=== PATIENT | female | born 1935 | race Caucasian/White ===

== ENCOUNTER 2021-02-25 08:11 | Outpatient (CLI) | payer OTHER, SELFPAY ==
--- NOTE | ~2021-02-25 | DEXA_ITS ---
Bone Density Report Name: Jackie Bernard Age: 85 Sex: Female Ethnicity: White Date of : 1935 Indication: osteopenia; height loss; prior fracture; Referring Provider: CRYSTAL KEITA Study: Bone densitometry was performed. Exam Date: February 25, 2021 Accession number: [id number] Bone Density: Region BMD T-score Z-score Classification AP Spine (L1, L2) 0.916 -0.6 2.1 Normal Femoral Neck (Right) 0.615 -2.1 0.4 Osteopenia Total Hip (Right) 0.775 -1.4 0.9 Osteopenia World Health Organization criteria for BMD impression classify patients as: Normal (T-score at or above -1.0), Osteopenia (T-score between -1.0 and -2.5), or Osteoporosis (T-score at or below -2.5). 10-year Fracture Risk: FRAX not reported because: Prior hip or vertebral fracture Previous Exams: Region Exam Age BMD T-score BMD Change BMD Change Date g/cm2 vs Baseline vs Previous AP Spine(L1, L2) 02/25/2021 85 0.916 -0.6 0.009(1.0%) 0.009(1.0%) 02/09/2019 83 0.907 -0.7 Total Hip(Right) 02/25/2021 85 0.775 -1.4 0.055(7.6%)* 0.055(7.6%)* 02/09/2019 83 0.720 -1.8 *Denotes significance at 95% confidence level, LSC for AP Spine = 0.022 g/cm2, LSC for Total Hip = 0.027 g/cm2 Clinical Information Provided by Patient: Have had a previous hip or vertebral fracture Has had a low trauma fracture Has used the following medications: Vitamin D, Calcium Patient maximum height was 67 Menopause Age: 51 No regular weight bearing exercise Does not regularly consume dairy products Drinks caffeinated beverages Onset of menses at age 15 Number of children 3 Impression: The patient has low bone mass, based on the Right Femoral Neck T-score. The patient has risk factors, including: previous fracture. No significant bone loss was observed. Discussion: INCREASED RISK OF FRACTURE DUE TO HISTORY OF FRACTURE. The patient's previous fracture puts the patient at high risk of a future fracture. In untreated patients, the risk of osteoporotic fracture increases approximately two-fold for each 1.0 SD decrease in T-score. Low bone density is not the only risk factor for fracture; also consider factors such as patient's age, frailty or poor health, risk of falling, risk of injury, previous osteoporotic fracture, family history of osteoporosis, cigarette smoking, low body weight, etc. Not everyone with a low trauma fracture has osteoporosis; osteomalacia and other metabolic bone disorders should also be considered. Patients who have osteoporosis should be evaluated for
== END 2021-02-25 08:12 | disposition home or self-care (01) ==
PROVIDERS: PCP Internal Medicine; Visit Provider Internal Medicine
DX: M81.0 Age-related osteoporosis without current pathological fracture (principal); M85.851 Other specified disorders of bone density and structure, right thigh
CPT/HCPCS: 77080

== ENCOUNTER → 2021-10-28 00:39 | Outpatient (CLI) | payer OTHER, SELFPAY ==
[2021-10-29 10:57] LABS: SARS-CoV-2 RNA PCR Positive
== END ==
PROVIDERS: PCP Internal Medicine; Visit Provider Internal Medicine
DX: U07.1 COVID-19 (principal)
CPT/HCPCS: C9803; U0003; U0005

== ENCOUNTER 2022-01-29 08:45 | Outpatient (RCR) | payer OTHER, SELFPAY ==
--- NOTE | 2021-12-17 10:40 | PTOPEVAL ---
PHYSICAL THERAPY INITIAL EVALUATION Thank you for referring Jackie Garcia to [facility].? The patient is scheduled to be seen for therapy? 2x/week for 4 weeks. Please review, sign, date and return this plan of care JACKIE. I agree with and certify that the following plan of care is medically necessary. Referring Physician Date Attending Provider: Gabriel Romero MD *PT Outpatient Evaluation Start: 12/17/21 Evaluation Information Diagnosis Repeated falls Additional Evaluation Detail Pt presents today with her [place]. She is wheeled by the therapist into the treatment area. Subjective Information Pt states she fell down , her Query Text:As Reported By Patient/ states she has fallen Family at least 4 times in the last 6 months. Pt states she does not know why she falls but her reports she looses her balance and is not able to catch herself. Pt is unable to get up by herself or with her husbands support after she falls, they call EMS to help get her up. Pt uses a front WW walker at home and a rollator in the community. Per , her falls are usually when she is trying to get on/off the toilet or the couch. Pt reports she does not get up and walk around very often, really only to the bathroom and bath which is about 20 feet. Pain Assessment Pain Score 0: Self Report Upper Extremity Range of Motion General Upper Extremity Range of Motion WFL/Left,WFL/Right Lower Extremity Range of Motion General Lower Extremity Range of Motion WFL/Left,WFL/Right Lower Extremity Muscle Strength Testing Gross Lower Extremity Strength B knees 4/5 B ankles 3+/5 B hips 4-/5 Upper Extremity Muscle Strength Testing General Upper Extremity Strength Reason Not Measured WFL/Left,WFL/Right Gross Upper Extremity Strength Comments Grossly 4-/5 in B UE Balance Assessment Tinetti Balance Assessment Tinetti Composite Score (Balance + Gait) 07/09 Tinetti Fall Risk High Time Up Go (TUG) Timed Up and Go Test (TUG) (Seconds) 50 Assistive Devices Walker, Rollator 5 Time Sit to Stand Time in Seconds 39 5 Time Sit to Stand Comments With use of UEs, did not Query Text:Normative Data: If Greater achieve upright posture
--- NOTE | 2022-01-13 09:53 | PTOPEVAL ---
PHYSICAL THERAPY PROGRESS REPORT. Thank you for referring Jackie Garcia to [facility].? The patient is scheduled to continue therapy? 1x/week for 4 weeks. Please review, sign, date and return this plan of care JACKIE. I agree with and certify that the following plan of care is medically necessary. Referring Physician Date Attending Provider: Gabriel Romero MD Evaluation Information Diagnosis Repeated falls Subjective Information Pt and her say therapy Query Text:As Reported By Patient/ is helping a little bit. They Family both state her ability to transfer in her home is the same. Pts report one fall in the last month. Pt states she does her exercises but does not walk around her home much. Pain Assessment Pain Score 0: Self Report Lower Extremity Range of Motion General Lower Extremity Range of Motion WFL/Left,WFL/Right Lower Extremity Muscle Strength Testing General Lower Extremity Strength Gross Lower Extremity Strength B knees 4/5 B ankles 4-/5 B hips 4/5 Balance Assessment Tinetti Balance Assessment Tinetti Composite Score (Balance + Gait) 07/09 Tinetti Fall Risk High Time Up Go (TUG) Timed Up and Go Test (TUG) (Seconds) 46 Assistive Devices Walker, Rollator Comments Initially: 50s with rollator 01/13/22: 46s with rollator 5 Time Sit to Stand Time in Seconds 39 5 Time Sit to Stand Comments Initially: 39s With use of UEs Query Text:Normative Data: If Greater , did not achieve upright Than 15 Seconds, 74% Increase Risk for posture each time, no Recurrent Falls eccentric control during sitting 01/13/22: 33s With use of UEs, did not achieve upright posture each time, no eccentric control during sitting Gait Assessment Ambulation Assistive Devices Walker, Rollator Ambulation Distance 100' Ambulation Destination In Gym Ambulation Direction Forward Ambulation Ability Contact Guard Cues Needed For Ambulation Verbal Additional Ambulation Comments decreased step length initially responds to take big steps with a slightly increased step length. This does not carry over for more than 10 steps. Freezing and staggering pattern du
--- NOTE | 2022-02-04 08:28 | PCPTNOTE ---
Patient called & cancelled scheduled appointment this date due to having a sore foot.
--- NOTE | 2022-02-10 14:59 | PCPTNOTE ---
Patient called & cancelled scheduled appointment this date due to her foot being swollen.
--- NOTE | 2022-02-26 09:53 | PCPTNOTE ---
Attending Provider: Gabriel Romero MD Patient:Jackie Garcia Date of :1935 Patients called and canceled her remaining appointments due to her having persistent foot pain and her doctor recommending that she stop therapy. She would like to be discharged at this time, and he states they will get a new order when she is feeling better. Patient?s initial visit was on 12/17/2021 and she had a total of 9 visits. The goals have been partially met. Thank you for referring this patient to [facility]. Please review, sign, date and return this discharge summary JACKIE. I have been updated about the patient's current status and I agree with discharge from the above service at this time. Referring Physician Date
== END 2022-02-26 16:20 | disposition home or self-care (01) ==
LOC: ANHPT 08:45
PROVIDERS: PCP Internal Medicine; Visit Provider Internal Medicine
DX: R29.6 Repeated falls (principal)
CPT/HCPCS: 97110; 97112; 97116; 97161; 97530

== ENCOUNTER 2022-02-03 12:09 | Outpatient (CLI) | payer OTHER, SELFPAY ==
--- NOTE | 2022-02-03 13:19 | ECHO_ITS ---
Patient Info Name: Jackie Garcia Age: 86 years : 1935 Gender: Female Ht: 67 in Wt: 250 lbs BSA: 2.37 m2 HR: 57 bpm BP: 183 / 102 mmHg Technical Quality: Fair Exam Date: 02/03/2022 1:40 PM Exam Location: [facility] Patient Status: Outpatient Admit Date: 02/03/2022 Staff Ordering Physician: Gabriel Romero MD Tin Plater: Charlotte Recinos RDCS Attending Provider: Gabriel Romero MD Exam Type: CA echo doppler color flow Study Info Indications - NONNON RHEUMATIC AORTIC VALVE DISORDER Complete two-dimensional, color flow and Doppler transthoracic echocardiogram is performed. Summary 1. Complete two-dimensional, color flow and Doppler transthoracic echocardiogram is performed. 2. Left ventricular chamber dimension is normal. 3. Left ventricular systolic function is normal, estimated at 65-70%. 4. There is mildly increased left ventricular wall thickness. 5. The left ventricular diastolic function is grade I diastolic dysfunction. 6. E/e' 18 is elevated. 7. Left atrial chamber dimension is mildly enlarged. 8. There is mild aortic valve sclerosis. 9. The mitral valve has moderately calcified annulus. 10. There is mild tricuspid valve regurgitation. 11. No pulmonary hypertension, estimated pulmonary arterial systolic pressure is 29 mmHg. Left Ventricle E/e' 18 is elevated. Left ventricular chamber dimension is normal. Left ventricular systolic function is normal, estimated at 65-70%. There is mildly increased left ventricular wall thickness. The left ventricular diastolic function is grade I diastolic dysfunction. Right Ventricle Right ventricular chamber dimension is normal. Right ventricular systolic function is normal. Left Atria Left atrial chamber dimension is mildly enlarged. Right Atria Right atrial chamber dimension is normal. Aortic Valve The aortic valve is trileaflet. There is mild aortic valve sclerosis. There is no aortic valve stenosis. There is no aortic valve regurgitation. Pulmonic Valve There is no pulmonic regurgitation. Mitral Valve The mitral valve has moderately calcified annulus. There is no mitral valve stenosis. There is no mitral valve regurgitation. Tricuspid Valve There is mild tricuspid valve regurgitation. No pulmonary hypertension, estimated pulmonary arterial systolic pressure is 29 mmHg. Pericardium/Pleural There is no pericardial effusion. Inferior Vena Cava Normal inferior vena cava with >50% collapse upon inspiration consistent with normal right atrial pressure, 5 mmHg. Aorta The aortic root size at the sinus of Valsalva is normal. Left Ventricular Outflow Tract Name Value Normal LVOT 2D LVOT Diameter 2.0 cm LVOT Doppler LVOT Peak Gradient 5 mmHg LVOT Mean Gradient 3 mmHg LVOT VTI 28 cm LVOT VTI/AV VTI Ratio 0.8 LVOT Stroke Volume 85 ml LVOT CO 15.2 l/min LVOT CI 6.4 l/min/m2 Pulmonic Valve ------
== END 2022-02-03 12:10 | disposition home or self-care (01) ==
LOC: ANHCARD 12:11
PROVIDERS: PCP Internal Medicine; Visit Provider Internal Medicine
DX: I35.8 Other nonrheumatic aortic valve disorders (principal); I36.1 Nonrheumatic tricuspid (valve) insufficiency
CPT/HCPCS: 93306

== ENCOUNTER → 2022-02-13 09:09 | Outpatient (CLI) | payer OTHER, SELFPAY ==
--- NOTE | ~2022-02-13 | XR_ITS ---
EXAMINATION: [id number] INDICATION: Right foot pain TECHNIQUE: Three views of the right foot are obtained. COMPARISON: None available FINDINGS: The bones are osteopenic which limits the sensitivity for fracture however none is seen. Ramirez llux valgus is noted. 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 M oderate to osteoarthritis is noted in multiple other interphalangeal joints as well is at the tarsome tatarsal joints. There is dorsal soft tissue swelling of the foot overlying the metatarsals. Calcifie d atherosclerosis is noted. IMPRESSION: 1. Dorsal soft tissue swelling of the foot without acute osseous abnormality identified, sensitivity limited by osteopenia Reviewed, dictated and finalized at location B. IMPRESSION: 1. Dorsal soft tissue swelling of the foot without acute osseous abnormality id entified, sensitivity limited by osteopenia
== END ==
PROVIDERS: PCP Internal Medicine; Visit Provider Internal Medicine
DX: M79.671 Pain in right foot (principal); M79.89 Other specified soft tissue disorders; M85.88 Other specified disorders of bone density and structure, other site
CPT/HCPCS: 73630

== ENCOUNTER 2022-04-02 12:11 | Outpatient (CLI) | payer OTHER, SELFPAY ==
--- NOTE | 2022-04-04 11:39 | WPDNEUROLOGY ---
Neurology EEG Report General Information Date of Study: 04/02/22 TEST eeg DIAGNOSIS amnesia CONDITION OF RECORDING awake drowsy and sleep EEG NUMBER [id number] CLINICAL HISTORY patient is not sure why she is having this test EEG DESCRIPTION basic resting occipital frequency consists of low to medium voltage 8 to 9 hertz per 2nd alpha admixed with low-voltage 15 to 18 hertz per 2nd beta and intermittent 6 to 7 hertz per 2nd theta activity. Photic stimulation produced normal drive. Hyperventilation not done. Non paroxysmal. Nonfocal. Nonlateralizing. IMPRESSION No significant abnormalities noted
== END 2022-04-02 12:12 | disposition home or self-care (01) ==
LOC: ANHNEURO 12:13
PROVIDERS: PCP Internal Medicine; Visit Provider Psychiatry & Neurology Neurology
DX: R41.3 Other amnesia (principal)
CPT/HCPCS: 95816

== ENCOUNTER 2023-01-24 09:31 | Inpatient (IN) | payer OTHER, SELFPAY ==
[2023-01-24] VITALS (43 sets, daily range): BP systolic 108–147; BP diastolic 68–108; PULSE 54–71; RESP 15–28; TEMP 36.2–36.7; O2SAT 85–100
--- NOTE | ~2023-01-24 | XR_ITS ---
Portable chest x-ray Comparison: 01/25/2023 Clinical History: CHF Findings: Central congestive change and mild central pulmonary edema pattern is present. There is a linear scarring or atelectasis at the left midlung. Cardiomediastinal silhouette is stable. Bones an d soft tissues are unremarkable. Impression: Central congestive change and mild central pulmonary edema. Linear scarring or atelectasis at the left midlung. Reviewed, dictated and finalized at location . Impression: Central congestive change and mild central pulmonary edema. Linear scarring or atelectasis at the left midlung.
--- NOTE | ~2023-01-24 | XR_ITS ---
Portable chest x-ray Comparison: 01/26/2023 Clinical History: Shortness of breath Findings: There is central congestive change and mild pulmonary edema. Possible minimal pleural effu sions. Stable prominence of the right hilar region. Cardiomediastinal silhouette is stable. Bones an d soft tissues are unremarkable. Impression: Probable central congestive change and mild pulmonary edema with possible minimal pleural effusions. Stable prominence the right hilar region. Reviewed, dictated and finalized at location . Impression: Probable central congestive change and mild pulmonary edema with possible minim al pleural effusions. Stable prominence the right hilar region.
--- NOTE | ~2023-01-24 | XR_ITS ---
Portable chest x-ray Comparison: 01/28/2023 Clinical History: CODE BLUE Findings: There is mild central congestive change and possible minimal bibasilar pulmonary edema. No pleural effusion or pneumothorax. Cardiomediastinal silhouette is stable. Bones and soft tissues ar e unremarkable. Impression: Central congestive change and probable minimal bibasilar pulmonary edema. Reviewed, dictated and finalized at location . Impression: Central congestive change and probable minimal bibasilar pulmonary edema.
--- NOTE | ~2023-01-24 | CT_ITS ---
EXAMINATION: CTA chest PE protocol DATE: 01/24/2023 12:17 INDICATION: Hypoxia and shortness of breath TECHNIQUE: Computed tomography angiography (CTA) of the chest was performed with 100 mL Omnipaque-350 intravenous contrast timed to evaluate the pulmonary arteries. Coronal maximum intensity projection 3D-reconstructions were created by the technologist. The dose-length product (DLP) was 1085.06 mGy-cm . Automated exposure control and iterative reconstruction technique were employed. COMPARISON: None. FINDINGS: The pulmonary arteries are well-opacified. Respiratory motion artifact moderately limits th e examination. No central pulmonary embolism is identified. There are minimal airspace opacities of t he lung bases. Some areas of air-trapping are seen in the upper lobes which may reflect small airways disease or small vessel disease. No pleural effusion or pneumothorax. Cardiomegaly is noted. There a re no pathologically enlarged thoracic lymph nodes. Punctate calcifications in an otherwise normal sp kasi likely represent healed granulomatous disease. There is moderate thoracic spondylosis. IMPRESSION: 1. No pulmonary embolus identified, sensitivity limited by respiratory motion artifact. 2. Minimal airspace opacities of the lung bases, consistent with atelectasis versus mild pulmonary ed aida versus pneumonia. 3. Cardiomegaly. Reviewed, dictated and finalized at location A. IMPRESSION: 1. No pulmonary embolus identified, sensitivity limited by respiratory motion a rtifact. 2. Minimal airspace opacities of the lung bases, consistent with atelectasis ve rsus mild pulmonary edema versus pneumonia. 3. Cardiomegaly.
--- NOTE | ~2023-01-24 | XR_ITS ---
EXAMINATION: XR chest 1V portable INDICATION: Congestive heart failure TECHNIQUE: Portable AP chest at 0527 hours COMPARISON: 01/24/2023 FINDINGS: Cardiomegaly is noted. There is a mild diffuse interstitial pattern without significant thang nge. No pleural effusion or pneumothorax. IMPRESSION: 1. Cardiomegaly with unchanged mild pulmonary edema. Reviewed, dictated and finalized at location A.
--- NOTE | ~2023-01-24 | XR_ITS ---
EXAMINATION: XR chest 1V portable INDICATION: Shortness of breath TECHNIQUE: Portable AP chest at 1038 hours COMPARISON: None available FINDINGS: There are airspace opacities of the lung bases and left midlung zone. No pleural effusion o r pneumothorax. The cardiomediastinal silhouette is normal. IMPRESSION: 1. Airspace opacities of the lung bases and left midlung zone, consistent with atelectasis versus pne umonia. Reviewed, dictated and finalized at location A. IMPRESSION: 1. Airspace opacities of the lung bases and left midlung zone, consistent with atelectasis versus pneumonia.
--- NOTE | 2023-01-24 10:01 | ECG_ITS ---
Measurements Intervals [place]ell Rate: 65 P: IL: 0 QRS: -22 QRSD: 166 T: 7 QT: 474 QTc: 496 Interpretive Statements UNCERTAIN REGULAR RHYTHM BORDERLINE LEFT AXIS DEVIATION [QRS AXIS < -20] INTRAVENTRICULAR CONDUCTION DELAY [130+ ms QRS DURATION] Possible old inferior NC Poor R-wave progression NO PREVIOUS ECG AVAILABLE FOR COMPARISON Electronically Signed On 01-24-2023 22:16:05 CDT by Anahy Christina M.D.
--- NOTE | 2023-01-24 10:03 | ED.SOB ---
HPI - SOB/Dyspnea General Chief Complaint: Shortness of Breath/Dyspnea <Nerissa Ferrera PA-C - Last Filed: 01/24/23 14:02> Stated Complaint: SOB <Nerissa Ferrera PA-C - Last Filed: 01/24/23 14:02> Time Seen by Provider: 01/24/23 09:57 <Nerissa Ferrera PA-C - Last Filed: 01/24/23 14:02> History of Present Illness HPI Narrative: 87-year-old female history of hypertension, dementia, here via EMS for evaluation of SOB x 1 day. History obtained largely from given patient's baseline mental status. He tells me that she started feeling short of breath yesterday. States that she felt this way throughout the entirety of the day and is not particularly worse with exertion or better at rest. She was complaining of chest pain 3 days ago as well but patient denies this currently. She reports some mild swelling around her ankles which she states is chronic. Does not elaborate on the quality of the pain. She had no cough, fevers, congestion. She has no smoking history. Patient was found to have saturations in the high 80s on room air and she was placed on nasal cannula with improvement of her saturations, she has never had an oxygen requirement in the past. <Nerissa Ferrera PA-C - Last Filed: 01/24/23 14:02> Related Data Allergies/Adverse Reactions: Allergies Allergy/AdvReac Type Severity Reaction Status Date / Time No Known Allergies Allergy Verified 07/28/22 09:01 <AMBREEN Mazariegos Last Filed: 01/24/23 14:02> Review of Systems Review of Systems: Gen.: Denies fevers or chills Eyes: Denies eye pain or visual change ENT: Denies congestion Respiratory: Reports shortness of breath CV: Denies chest pain or palpitations GI: Denies abdominal pain nausea, emesis or diarrhea : denies burning, urgency, frequency or hematuria Musculoskeletal: Denies back pain or muscle pain Neuro: Denies numbness, tingling, weakness or focal weakness Skin: Denies rash Except as documented, all other systems reviewed and negative <CARISSA Mazariegos-C - Last Filed: 01/24/23 14:02> [facility] Past Medical History Medical History: Medical History (Updated 01/24/23 @ 14:02 by Nerissa Ferrera PA-C) Aortic heart murmur Diastolic heart failure, NYHA class 1 Dyslipidemia Hypertension Parkinson disease <Nerissa Ferrera PA-C - Last Filed: 01/24/23 14:02> Surgical History Surgical History: Surgical History (Updated 01/24/23 @ 13:57 by Crystal Pappas NP) Hx of cataract extraction S/P ORIF (open reduction internal fixation) fracture hip <Nerissa Ferrera PA-C - Last Filed: 01/24/23 14:02> Family History Family History: Family History Father Family history of malignant neoplasm Mother Family history of malignant neoplasm Patient's mother is Mother Hypertension Father Patient's father is Family history of cardiovascular disease <Nerissa Ferrera PA-C - Last Filed: 01/24/23 14:02> Social History Social History: Social History Social History: 3 children . lives with . 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 alert and oriented x 2 which is her baseline Head: Normocephalic and atraumatic. EYES: PERRLA/EOMI, conjunctivae clear NOSE: No nasal drainage EARS: External ear normal in appearance THROAT: Oropharynx is clear. Mucous membranes are moist. NECK: Supple. No adenopathy, no masses. RESPIRATORY: There are
[2023-01-24] MEDS: IPRATROPIUM BR 0.02% INH SOLN 0.5 MG/2.5 ML VIAL INHALATION ×2 (10:17→21:36)
[2023-01-24] MEDS: LEVALBUTEROL NEB 1.25 MG/3 ML INHALATION (10:18)
[2023-01-24 10:32] LABS: Alveolar/Arterial O2 Gradient 79.7 mmHg; Base Excess ABG 5.9 mEq/l (+/-2.0); Fractional Inspired Oxygen 28 %; HCO3 ABG 30.1 mEq/l (22.0-26.0); Oxygen Content ABG 17.3 %vol (16.0-22.0); Oxygen Saturation ABG 95.1 % (95.0-100.0); Oxyhemoglobin 91.5 % THb (90.0-100.0); PCO2 ABG 41.8 mmHg (35.0-45.0); PO2 ABG 70.6 mmHg (80.0-100.0); PO2 FiO2 Ratio Arterial Blood 2.52 %; Total Hemoglobin 13.4 g/dL (12.0-18.0); pH ABG 7.475 (7.350-7.450)
[2023-01-24 10:34] LABS: Device NASAL CANNULA; Modified Allen's Test Pass; Site Drawn LEFT RADIAL
[2023-01-24 11:11] LABS: Basophils Percent Auto 0.3 % (0.2-1.2); Eosinophils Percent Auto 0.1 % (0-4.4); Hematocrit 40.2 % (37.0-47.0); Hemoglobin 13.4 g/dL (12.0-15.0); Immature Granulocyte Absolute 0.04 K/mm3 (0.00-0.031); Immature Granulocyte Percent A 0.4 % (0-0.5); Lymphocytes Absolute Auto 1.56 K/mm3 (0.9-3.2); Lymphocytes Percent Auto 16.1 % (18.3-44.2); Mean Corpuscular HGB Conc 33.3 g/dl (32-36); Mean Corpuscular Hemoglobin 31.5 pg (26-34); Mean Corpuscular Volume 94.4 fl (80-100); Mean Platelet Volume 11.1 fl (7.4-10.4); Monocytes Absolute Auto 0.7 K/mm3 (0.1-0.6); Monocytes Percent Auto 7.4 % (2.6-8.5); Neutrophils Absolute Auto 7.3 K/mm3 (1.3-6.7); Neutrophils Percent Auto 75.7 % (45.5-73.1); Platelet Count Result 201 k/mm3 (150-375); Red Blood Count 4.26 M/mm3 (4.2-5.4); Red Cell Distribution Width 14.6 % (11.5-14.5); White Blood Count 9.7 K/mm3 (4.5-10.0)
[2023-01-24 11:24] LABS: INR 1.1; Prothrombin Time 13.8 Seconds (11.1-14.7)
[2023-01-24 11:25] LABS: Partial Thromboplastin Time 25.5 SECONDS (22.3-36.8)
[2023-01-24 11:26] LABS: Lactic Acid Reflex 2.4 mmol/L (0.7-2.0)
[2023-01-24 11:28] LABS: D Dimer 2.09 ug/mL (<0.48)
[2023-01-24 11:46] LABS: Influenza A QL RT-PCR Negative (Negative); Influenza B QL RT-PCR Negative (Negative); SARS-CoV-2 RNA PCR Negative
[2023-01-24 11:51] LABS: Alanine Aminotransferase 81 U/L (6-35); Albumin Level 4.1 g/dL (3.5-5.1); Alkaline Phosphatase 58 U/L (38-126); Anion Gap 9 mmol/L (8-16); Aspartate Amino Transferase 223 U/L (14-36); Bilirubin,Total 0.7 mg/dL (0.2-1.3); Blood Urea Nitrogen 30 mg/dL (7-17); Calcium 8.8 mg/dL (8.4-10.2); Carbon Dioxide 30 mmol/L (22-30); Chloride 100 mmol/L (98-107); Estimated Glomerular Filt Rate 59; Glucose 156 mg/dL (65-110); Magnesium 1.9 mg/dL (1.6-2.3); NT Pro B Type Natriuretic Pept 1930 pg/mL (19.9-100); Sodium 139 mmol/L (137-145)
[2023-01-24] MEDS: ASPIRIN 81 MG CHEWABLE TABLET 324 MG PO (12:28)
--- NOTE | 2023-01-24 12:58 | PC.NURSE ---
RN to bedside to start heparin drip. Attempted to place second IV for heparin infusion unsuccessfully. Pt has been poked four times and has poor vasculature. Antibiotic due to be finished in less than 30 min. Pt's at bedside requesting to wait the 30 minutes so that patient does not need to be poked again. Will start heparin as soon as abx finishes.
[2023-01-24] MEDS: HEPARIN SODIUM 5,000 UNITS/ML VIAL 4000 UNITS IV PUSH ×2 (13:41→20:42)
[2023-01-24] MEDS: HEPARIN SOD/D5W 100 UNITS/ML 25,000 UNITS/250 ML BAG 8 UNITS IV CONT (13:42)
[2023-01-24] MEDS: SODIUM CHLORIDE 0.9% IV 1,000 ML 999 ML IV CONT (13:44)
--- NOTE | 2023-01-24 13:53 | PM.IMHP ---
H&P: HPI History of Present Illness Date/Time: 01/24/23 13:53 Chief Complaint: Shortness of breath Narrative: This is an 87-year-old female patient who has a history of dementia and hypertension. The patient lives at home with her . The patient came to the emergency room to be evaluated for shortness of breath for the last day. The information was obtained by her daughter who is at the bedside and stated that she was the power spindle maker for the patient. The patient was feeling short of breath yesterday but then she refused to come to the emergency room. Patient also complained of chest pain about 3 days ago but would not go to the emergency room. The patient has some mild swelling around her lower extremities at the family stated is chronic. Her O2 saturations were in the high 80s on room air. She does not wear oxygen at home. The patient was placed on oxygen at 2 L per nasal cannula here in the emergency room. Her D-dimer was found to be 2.09. Chest CTA was read as the following 1. No pulmonary embolus identified, sensitivity limited by respiratory motion artifact. 2. Minimal airspace opacities of the lung bases, consistent with atelectasis versus mild pulmonary edema versus pneumonia. 3. Cardiomegaly. Chest x-ray was read as air space opacities of the lower lung base and left mid lung zones consistent with atelectasis versus pneumonia. The patient was started on a heparin drip after her troponin was found to be 13.800 and then came down to 6.880. BNP was found be 1930. The patient has been started on heparin drip. The patient was found to be negative for influenza A/B and COVID. The patient is being admitted to inpatient status on the date of service of 01/24/2023. Review of Systems Review of Systems: All systems reviewed & are unremarkable except as noted in HPI and below Constitutional: Constitutional: Reports as per HPI and Reports no additional constitutional complaints Eyes: Eyes: Reports as per HPI and Reports no additional eye complaints ENT: Reports system reviewed and no additional complaints, except as documented and Reports Normal hearing present Cardiovascular: Cardiovascular: Reports no additional cardiovascular complaints Respiratory: Respiratory: Reports no additional respiratory complaints and Reports no additional respiratory complaints Gastrointestinal: Gastrointestinal: Reports as per HPI and Reports no additional gastrointestinal complaints Musculoskeletal: Musculoskeletal: Reports no additional musculoskeletal complaints Integumentary/Breasts: Skin/Breast: Reports system reviewed and no additional complaints, except as docu and Reports as per HPI Neurologic: Reports system reviewed and no additional complaints, except as documented, Reports as per HPI and Reports Normal hearing present Psychiatric: Psychiatric: Reports no additional psychiatric complaints and Reports as per HPI Endocrine: Endocrine: Reports no additional endocrine complaints Hematologic/Lymphatic: Hematologic/Lymphatic: Reports no additional hematologic/lymphatic complaints Allergic/Immunologic: Allergic/Immunologic: Reports no additional allergic/immunologic complaints [facility] Past Medical History Medical History (Updated 01/24/23 @ 16:34 by Crystal Pappas NP) Aortic heart murmur Diastolic heart failure, NYHA class 1 Dyslipidemia Hypertension Osteoporosis Parkinson disease Surgical History Surgical History Hx of cataract extraction S/P ORIF (open reduction internal fixation) fracture hip Family History Family History Father Family history of malignant neoplasm Mother Family history of malignant neoplasm Patient's mother is Mother Hypertension Father Patient's father is Family history of cardiovascular disease Social History Social History (
[2023-01-24 14:07] LABS: Reflex Lactic Acid Yes or No Add Lactic
[2023-01-24 14:37] LABS: Appearance Urine Slightly Cloudy (Clear); Bilirubin Urine Negative (Negative); Blood Urine Trace-intact (Negative); Color Urine Yellow (Yellow); Glucose Urine UA Negative (Negative); Ketones Urine Negative (Negative); Leukocyte Esterase Ur Negative LEU/UL (Negative); Nitrate Urine Negative (Negative); Protein Urine 1+ mg/dL (Negative); Urobilinogen Urine 0.2 mg/dL (<2.0); pH Urine 5.5 (5.0-9.0)
[2023-01-24] MEDS: FUROSEMIDE INJ 40 MG/4 ML VIAL IV PUSH ×2 (14:37→16:39)
[2023-01-24 14:43] LABS: Add Urine Microscopic? YES
[2023-01-24 14:44] LABS: RBC Urine 0-2 /hpf (0-2)
[2023-01-24] MEDS: KCL 20 MEQ/SW 100 ML 100 ML 50 MEQ IVPB (14:44)
[2023-01-24 14:45] LABS: Squamous Epithelial Cell Urine Moderate /hpf (Few)
[2023-01-24 14:46] LABS: Bacteria Urine Trace /hpf
--- NOTE | 2023-01-24 15:49 | PC.NURSE ---
This patient, Jackie Garcia, was admitted to IMU Room 206-01. Patient/family oriented to hospital policies and general routines including ID bracelet, bed and alarms, visiting hours, pain management, procedures, bathroom and other care routines, personal items, smoking policy, room service/diet, and visiting hours. Information on how to activate the Rapid Response Team has been discussed. Patient/Family are encouraged to report perceived risks to care and to ask questions if they do not understand what they are told or what they should do.
--- NOTE | 2023-01-24 16:02 | PC.NURSE ---
Admission questions and medication reconciliation was completed with family as patient answers most orientation questions correctly but is overall a poor historian.
[2023-01-24 16:35] LABS: Lactic Acid 2.4 mmol/L (0.7-2.0)
[2023-01-24] MEDS: NITROGLYCERIN OINTMENT 1 INCH DOSE TRANSDERM (16:39)
--- NOTE | 2023-01-24 17:49 | PM.CNCAR ---
Assessment and Plan Assessment and plan (1) Non-ST elevation PA (NSTEMI): Code(s): I21.4 - Non-ST elevation (NSTEMI) myocardial infarction Status: Acute Assessment and Plan: Patient with stuttering chest pain over the last 3 days, EKG changes suggestive of ischemia but not STEMI. Since this is associated with CHF I suspect she has very significant coronary artery disease. I explained to the patient and her family that this is a serious situation and that her prognosis is not good. Thhis may be a life-threatening situation. I recommend medical therapy as well as cardiac catheterization to see her coronary anatomy and if PCI is feasible. Reviewed cardiac catheterization including risks and benefits. ( Reviewed possible risks and complications with patient including breathing problems, bleeding problems, blood vessel problems, unanticipated surgery, allergic reactions, kidney problems, CVA, PA, and among others. Discussed possibility of stenting and also the possibility that stents will not be feasible and bypass surgery may be needed, or possibly just medical tx. ). The family understands the risks. Patient desires to proceed. Hopefully we can do this electively on Thursday but if the patient deteriorates this may need to be emergency procedure. --continue aspirin, heparin --continue carvedilol --check EKG in the morning --nitro paste and sublingual nitro --echocardiogram --cardiac catheterization and possible PCI on Thursday unless there is significant deterioration that cannot be controlled medically. (2) Acute combined systolic and diastolic congestive heart failure: Code(s): I50.41 - Acute combined systolic (congestive) and diastolic (congestive) heart failure Status: Acute Assessment and Plan: Patient presents with acute heart failure, probably due to diastolic and now a degree of systolic dysfunction which is a poor prognostic sign 1 associated with acute PA. --echo on Thursday --continue diuretics, losartan, carvedilol (3) Dyslipidemia: Code(s): E78.5 - Hyperlipidemia, unspecified Status: Acute Assessment and Plan: History of dyslipidemia in the face of a non-STEMI. --start atorvastatin 40 mg daily. (4) Hypertension: Qualifiers: Hypertension type: primary hypertension Qualified Code(s): I10 - Essential (primary) hypertension Code(s): I10 - Essential (primary) hypertension Status: Acute Assessment and Plan: History of hypertension, reasonably controlled a at the present time. --continue BP meds. (5) Hypokalemia: Code(s): E87.6 - Hypokalemia Status: Acute Assessment and Plan: Will supplement potassium --check potassium in the morning (6) Dementia: Code(s): F03.90 - Unspecified dementia, unspecified severity, without behavioral disturbance, psychotic disturbance, mood disturbance, and anxiety Status: Acute Assessment and Plan: Explained to the patient and the family that her confusion may be worse during this hospital stay and we would do our best to keep her comfortable and oriented. History of Present Illness History of Present Illness Consult date/time: 01/24/23 17:49 Reason For Visit: NSTEMI Narrative: Jackie Wiggins is an 87-year-old female whom I was asked to see at the request of CARISSA Ferrera for my advice and opinion regarding her non-STEMI in consultation. History of hypertension and hyperlipidemia. The patient has no history of heart disease. She started having some substernal chest discomfort to 3 days ago. This has been intermittent, with some discomfort yesterday in this morning. In addition she had shortness of breath and heavy breathing starting the last 1 or 2 days. The family wanted to call 911 and bring her to the emergency room yesterday but the patient refused. This morning she looked worse and she was brought to the emergency room. Here she has had no complaints
[2023-01-24] MEDS: carvediloL 12.5 MG TABLET BY MOUTH (18:05)
[2023-01-24 20:21] LABS: Partial Thromboplastin Time 46.9 SECONDS (22.3-36.8)
[2023-01-24] MEDS: NITROGLYCERIN OINTMENT 1 INCH DOSE TOPICAL (20:49)
[2023-01-24] MEDS: LEVALBUTEROL NEB 1.25 MG/3 ML 0.63 MG INHALATION (21:36)
--- NOTE | 2023-01-24 21:36 | ECG_ITS ---
Measurements Intervals [place] Rate: 58 P: UT: 0 QRS: -16 QRSD: 89 T: -16 QT: 432 QTc: 427 Interpretive Statements ACCLERATED JUNCTIONAL BRADYCARDIA POSSIBLE ANTERIOR MYOCARDIAL INFARCTION PROBABLE OLD iNFERIOR MYOCARDIAL INFARCTION [40+ ms Q WAVE AND/OR ST/T ABNORMALITY IN II/aVF], OF COMPARED TO ECG 01/24/2023 09:36:56 NO SIGNIFICANT CHANGES Electronically Signed On 01-25-2023 9:21:06 CDT by Anahy Christina M.D.
[2023-01-24 23:08] LABS: Need Manual Microscopic Reviewed; Non Pathogenic Casts 0-2
[2023-01-25] VITALS (27 sets, daily range): BP systolic 89–138; BP diastolic 38–80; PULSE 48–72; RESP 18–24; TEMP 36.1–36.7; O2SAT 92–99
--- NOTE | 2023-01-25 | ECHO_ITS ---
Patient Info Name: Jackie Garcia Age: 87 years : 1935 Gender: Female Ht: 66 in Wt: 229 lbs BSA: 2.24 m2 HR: 63 bpm BP: 107 / 68 mmHg Heart Rhythm: Bradycardia Technical Quality: Fair Exam Date: 01/25/2023 10:53 AM Exam Location: [facility] Pulmonary Patient Status: Inpatient Admit Date: 01/24/2023 Staff Ordering Physician: Crystal Pappas NP [employer] Operator: Juani Christianson RDCS Attending Provider: Selena Loomis DO Referring Physician: Elyse VALENCIA; Exam Type: CA echo dop color flow w con Study Info Indications I51.7 - Cardiomegaly Complete two-dimensional, color flow and Doppler transthoracic echocardiogram is performed with contrast to opacify the left ventricle and to improve the deliniation of the left ventricle endocardial borders. Contrast/Agitated Saline Contrast/Ag. Saline: Definity Amount: 3.00 ml Administered By: Juani Christianson RDCS Existing IV Access: Yes IV Access Condition: patent with no signs of infiltration Summary 1. Small left ventricular cavity size with at least moderate concentric hypertrophy, and a degree of asymmetric septal hypertrophy of 1.6 cm. Hyperdynamic left ventricular systolic function, ejection fraction greater than 70%. There may be mild posterior septal basal hypokinesis. Grade 2 diastolic dysfunction is present. 2. Moderate right ventricular enlargement with severe hypokinesis, with apical sparing such as that seen with Gamble will sign. 3. Left atrial chamber dimension is moderately enlarged. 4. Right atrial chamber dimension is mildly enlarged. 5. There is moderate aortic valve stenosis with a peak velocity of 224.00 cm/s, mean gradient of 9 mmHg, and aortic valve area of 1.97 cm2. 6. There is mild mitral valve regurgitation. 7. Junctional bradycardia. 8. Technically difficult study, IV definity echo contrast used. Left Ventricle Left ventricular chamber dimension is decreased. Left ventricular systolic function is normal, estimated at >70%. There is moderately increased left ventricular wall thickness. Left ventricular septal wall motion is normal. The left ventricular diastolic function is grade II diastolic dysfunction. Right Ventricle Right ventricular chamber dimension is moderately enlarged. Right ventricular systolic function is reduced. Left Atria Left atrial chamber dimension is moderately enlarged. Right Atria Right atrial chamber dimension is mildly enlarged. Aortic Valve The aortic valve is trileaflet. There is no aortic valve sclerosis. There is moderate aortic valve stenosis with a peak velocity of 224.00 cm/s, mean gradient of 9 mmHg, and aortic valve area of 1.97 cm2. There is no aortic valve regurgitation. There is moderate aortic valve calcification. Pulmonic Valve The pulmonic valve is normal. There is no pulmonic valve stenosis. There is no pulmonic regurgitation. Mitral Valve The mitral valve has normal leaflets. There is no mitral valve stenosis. There is mild mitral valve regurgitation. There is mild mitral valve calcification. The mitral valve annulus is moderately calcified. Tricuspid Valve The tricuspid valve leaflets are normal. There is no significant tricuspid valve stenosis. There is trace tricuspid valve regurgitation. No pulmonary hypertension, estimated pulmonary arterial systolic pressure is 22 mmHg. Pericardium/Pleural The pericardium appears normal. There is no pericardial effusion.
[2023-01-25] MEDS: NITROGLYCERIN OINTMENT 1 INCH DOSE TOPICAL ×3 (01:05→14:15)
[2023-01-25] MEDS: LEVALBUTEROL NEB 1.25 MG/3 ML 0.63 MG INHALATION ×4 (02:46→20:53)
[2023-01-25] MEDS: IPRATROPIUM BR 0.02% INH SOLN 0.5 MG/2.5 ML VIAL INHALATION ×4 (02:47→20:53)
[2023-01-25 03:32] LABS: Partial Thromboplastin Time > 200.0 SECONDS (22.3-36.8)
[2023-01-25 05:32] LABS: Basophils Absolute Auto 0.1 K/mm3 (0.0-0.1); Basophils Percent Auto 0.5 % (0.2-1.2); Eosinophils Percent Auto 0.1 % (0-4.4); Hematocrit 37.2 % (37.0-47.0); Hemoglobin 12.2 g/dL (12.0-15.0); Immature Granulocyte Absolute 0.07 K/mm3 (0.00-0.031); Immature Granulocyte Percent A 0.8 % (0-0.5); Lymphocytes Absolute Auto 2.46 K/mm3 (0.9-3.2); Lymphocytes Percent Auto 26.6 % (18.3-44.2); Mean Corpuscular HGB Conc 32.8 g/dl (32-36); Mean Corpuscular Hemoglobin 31.2 pg (26-34); Mean Corpuscular Volume 95.1 fl (80-100); Mean Platelet Volume 11.1 fl (7.4-10.4); Monocytes Absolute Auto 0.9 K/mm3 (0.1-0.6); Monocytes Percent Auto 9.8 % (2.6-8.5); Neutrophils Absolute Auto 5.7 K/mm3 (1.3-6.7); Neutrophils Percent Auto 62.2 % (45.5-73.1); Platelet Count Result 181 k/mm3 (150-375); Red Blood Count 3.91 M/mm3 (4.2-5.4); Red Cell Distribution Width 14.9 % (11.5-14.5); White Blood Count 9.2 K/mm3 (4.5-10.0)
[2023-01-25 05:39] LABS: Alanine Aminotransferase 94 U/L (6-35); Albumin Level 3.8 g/dL (3.5-5.1); Alkaline Phosphatase 56 U/L (38-126); Anion Gap 5 mmol/L (8-16); Aspartate Amino Transferase 175 U/L (14-36); Bilirubin,Total 0.6 mg/dL (0.2-1.3); Blood Urea Nitrogen 36 mg/dL (7-17); Calcium 8.1 mg/dL (8.4-10.2); Carbon Dioxide 32 mmol/L (22-30); Chloride 99 mmol/L (98-107); Estimated Glomerular Filt Rate 53; Glucose 148 mg/dL (65-110); Magnesium 1.7 mg/dL (1.6-2.3); Potassium 2.9 mmol/L (3.4-5.0); Sodium 136 mmol/L (137-145)
--- NOTE | 2023-01-25 08:00 | ECG_ITS ---
Measurements Intervals [place] Rate: 49 P: -75 NV: 140 QRS: -14 QRSD: 89 T: 128 QT: 461 QTc: 420 Interpretive Statements JUNCTIONAL BRADYCARDIA LOW QRS VOLTAGE IN PRECORDIAL LEADS [QRS DEFLECTION < 1.0 mV IN CHEST LEADS] INFERIOR [place], PROBABLY OLD POOR R-WAVE PROGRESSION NONSPECIFIC ST-T CHANGES WHICH ARE MORE PRONOUNCED COMPARED TO THE PRIOR TRACING COMPARED TO ECG 01/24/2023 23:07:09 NO SIGNIFICANT CHANGES Electronically Signed On 01-25-2023 9:25:14 CDT by Anahy Christina M.D.
[2023-01-25] MEDS: LOSARTAN POTASSIUM 100 MG TABLET PO (09:18)
[2023-01-25] MEDS: FUROSEMIDE INJ 40 MG/4 ML VIAL IV PUSH (09:19)
[2023-01-25] MEDS: DONEPEZIL HCL 5 MG TABLET BY MOUTH (09:19)
[2023-01-25] MEDS: carvediloL 12.5 MG TABLET BY MOUTH (09:19)
[2023-01-25] MEDS: POTASSIUM CHLORIDE INJ 40 MEQ in SODIUM CHLORIDE 0.9% IV 500 ML 130 MEQ IVPB (09:20)
--- NOTE | 2023-01-25 09:30 | PM.IMPN ---
Progress Note: A&P Assessment and Plan (1) Non-ST elevation CA (NSTEMI): Code(s): I21.4 - Non-ST elevation (NSTEMI) myocardial infarction Status: Acute Assessment and Plan: Presented with shortness of breath, and chest pain for 3 days Trops elevated at 13.800, 6.880, 12.900, 11.100 EKG (01/24/23) shows regular rhythm, no ST elevation EKG (01/25/23) Bradycardia, CA anterior (recent), CA inferior (age indeterminate), no significant changes Chest xray shows opacities, of the lung bases, and left mid lung zone consistent with PNA vs atelectasis CTA does not indicate any PE, confirms opacities of the lung bases PNA vs Atelectasis vs pulmonary edema Cardiology consulted Supplemental oxygen Continue cavedilol, aspirin, nitro Continue heparin gtt for now Echo ordered Possible cath in the am NPO after midnight (2) Pneumonia: Code(s): J18.9 - Pneumonia, unspecified organism Status: Acute Assessment and Plan: CTA and chest xray indicate PNA vs Atelectasis Continue azithromycin Rocephin Blood cultures pending sputum cultures pending Supplemental oxygen as indicated Continue with nebulizer treatments (3) Diastolic heart failure, NYHA class 1: Code(s): I50.30 - Unspecified diastolic (congestive) heart failure Status: Acute Assessment and Plan: Echo from 02/03/2022 shows EF of 65-70% with grade 1 diastolic dysfunction Repeat echo ordered and pending CTA does indicated mild pulmonary edema appears to be an acute on chronic diastolic heart failure with exacerbation Continue lasix, losartan, and supplemental potassium Trend urine output Daily weights adjust therapy as indicated (4) Dyslipidemia: Code(s): E78.5 - Hyperlipidemia, unspecified Status: Acute Assessment and Plan: Low-fat diet Lipid panel in the am Start patient on statin as indicated (5) Hypertension: Qualifiers: Hypertension type: primary hypertension Qualified Code(s): I10 - Essential (primary) hypertension Code(s): I10 - Essential (primary) hypertension Status: Acute Assessment and Plan: Current BP is 138/78 Continue with Coreg, Lasix, and losartan Hold hydrochlorothiazide with lasix Continue to trend BP adjust therapy as indicated (6) Dementia: Code(s): F03.90 - Unspecified dementia, unspecified severity, without behavioral disturbance, psychotic disturbance, mood disturbance, and anxiety Status: Acute Assessment and Plan: Continue aricept Reorient often Encourage good wake sleep cycle trend mood and mentation (7) Hypokalemia: Code(s): E87.6 - Hypokalemia Status: Acute Assessment and Plan: K is 2.9 replace with 40 PO and IV recheck 1 hour post infusion replace as indicated Time Spent With Patient Time: 51 minutes Time with patient: Greater than 35 minutes Subjective Date/time seen: 01/25/23929 Interval history: 01/25/23929 Patient is lying in bed. Patient's son and [id number] are present in the room. She is alert and oriented x 2. She did not know the year or situation. She denies any chest pain, nausea, vomiting, diarrhea, and constipation. She did state that she is weaker than normal, and she is wanting a cheeseburger. Her daughter is present and has been updated. 01/24/23? 13:53 This is an 87-year-old female patient who has a history of dementia and hypertension.? The patient lives at home with her .? The patient came to the emergency room to be evaluated for shortness of breath for the last day.? The information was obtained by her daughter who is at the bedside and stated that she was the power compliance attorney for the patient.? The patient was feeling short of breath yesterday but then she refused to come to the emergency erick
--- NOTE | 2023-01-25 09:30 | P.PNIM_ITS ---
Progress Note: A&P Assessment and Plan (1) Non-ST elevation OR (NSTEMI): Code(s): I21.4 - Non-ST elevation (NSTEMI) myocardial infarction Status: Acute Assessment and Plan: * Presented with shortness of breath, and chest pain for 3 days * Trops elevated at 13.800, 6.880, 12.900, 11.100 * EKG (01/24/23) shows regular rhythm, no ST elevation * EKG (01/25/23) Bradycardia, OR anterior (recent), OR inferior (age ind eterminate), no significant changes * Chest xray shows opacities, of the lung bases, and left mid lung zone consistent with PNA vs atelectasis * CTA does not indicate any PE, confirms opacities of the lung bases PNA vs Atelectasis vs pulmonary edema * Cardiology consulted * Supplemental oxygen * Continue cavedilol, aspirin, nitro * Continue heparin gtt for now * Echo ordered * Possible cath in the am * NPO after midnight (2) Pneumonia: Code(s): J18.9 - Pneumonia, unspecified organism Status: Acute Assessment and Plan: * CTA and chest xray indicate PNA vs Atelectasis * Continue azithromycin Rocephin * Blood cultures pending * sputum cultures pending * Supplemental oxygen as indicated * Continue with nebulizer treatments (3) Diastolic heart failure, NYHA class 1: Code(s): I50.30 - Unspecified diastolic (congestive) heart failure Status: Acute Assessment and Plan: * Echo from 02/03/2022 shows EF of 65-70% with grade 1 diastolic dysfunction * Repeat echo ordered and pending * CTA does indicated mild pulmonary edema * appears to be an acute on chronic diastolic heart failure with exacerbation * Continue lasix, losartan, and supplemental potassium * Trend urine output * Daily weights * adjust therapy as indicated (4) Dyslipidemia: Code(s): E78.5 - Hyperlipidemia, unspecified Status: Acute Assessment and Plan: * Low-fat diet * Lipid panel in the am * Start patient on statin as indicated (5) Hypertension: Qualifiers: Hypertension type: primary hypertension Qualified Code(s): I10 - Essential (primary) hypertension Code(s): I10 - Essential (primary) hypertension Status: Acute Assessment and Plan: * Current BP is 138/78 * Continue with Coreg, Lasix, and losartan * Hold hydrochlorothiazide with lasix * Continue to trend BP * adjust therapy as indicated (6) Dementia: Code(s): F03.90 - Unspecified dementia, unspecified severity, without behavioral disturbance, psychotic disturbance, mood disturbance, and anxiety Status: Acute Assessment and Plan: * Continue aricept * Reorient often * Encourage good wake sleep cycle * trend mood and mentation (7) Hypokalemia: Code(s): E87.6 - Hypokalemia Status: Acute Assessment and Plan: * K is 2.9 * replace with 40 PO and IV * recheck 1 hour post infusion * replace as indicated Time Spent With Patient Time: 51 minutes Time with patient: Greater than 35 minutes Subjective Date/time seen: 01/25/23929 Interval history: 01/25/23929 Patient is lying in bed. Patient's son and [id number]-qui are present in the room. She is alert and oriented x 2. She did not know the year or situati
[2023-01-25 10:59] LABS: Partial Thromboplastin Time 58.5 SECONDS (22.3-36.8)
[2023-01-25] MEDS: ATORVASTATIN 40 MG TABLET PO (11:11)
[2023-01-25] MEDS: POTASSIUM CHLORIDE 20 MEQ TABLET 40 MEQ PO (11:11)
[2023-01-25] MEDS: HEPARIN SODIUM 5,000 UNITS/ML VIAL 3000 UNITS IV PUSH (11:16)
--- NOTE | 2023-01-25 11:22 | PM.PNCARD ---
Progress Note: A&P Assessment and Plan (1) Non-ST elevation [place] (NSTEMI): Code(s): I21.4 - Non-ST elevation (NSTEMI) myocardial infarction Status: Acute Assessment and Plan: NSTEMI, associated with CHF and lactic acidosis which are poor prognostic signs, particular in octogenarians. This is a life-threatening problem. --continue aspirin, heparin, nitrates --discontinue carvedilol due to junctional rhythm --stat echocardiogram today to assess LV fxn --cardiac catheterization and possible PCI on Thursday unless there is significant deterioration and CP that cannot be controlled medically. Reviewed situation with interventionalist on-call as I am concerned that the lactic acidosis represents poor perfusion. Since she has had no further chest pain and appears otherwise clinically stable, he recommended delaying catheterization until tomorrow as there was no need to perform emergency catheterization today. Hold off on dobutamine to reduce cardiac workload. (2) Acute combined systolic and diastolic congestive heart failure: Code(s): I50.41 - Acute combined systolic (congestive) and diastolic (congestive) heart failure Status: Acute Assessment and Plan: Patient presents with acute heart failure, probably due to diastolic and likely now a degree of systolic dysfunction which is a poor prognostic sign when associated with acute NH. --echo today --continue diuretics, losartan. Hold a.m. Lasix for cath. (3) Junctional bradycardia: Code(s): R00.1 - Bradycardia, unspecified Status: Acute Assessment and Plan: Junctional bradycardia, with worsening bradycardia, contributing to poor cardiac output. --DC carvedilol (4) Lactic acidosis: Code(s): E87.20 - Acidosis, unspecified Status: Acute Assessment and Plan: Likely due to poor cardiac output. Sepsis less likely, but cultures being done. (5) Dyslipidemia: Code(s): E78.5 - Hyperlipidemia, unspecified Status: Acute Assessment and Plan: History of dyslipidemia in the face of a non-STEMI. --started atorvastatin 40 mg daily. (6) Hypertension: Qualifiers: Hypertension type: primary hypertension Qualified Code(s): I10 - Essential (primary) hypertension Code(s): I10 - Essential (primary) hypertension Status: Acute Assessment and Plan: History of hypertension, reasonably controlled a at the present time. --continue BP meds. (7) Hypokalemia: Code(s): E87.6 - Hypokalemia Status: Acute Assessment and Plan: Will supplement potassium, getting IV Kcl. --check potassium later today and daily (8) Dementia: Code(s): F03.90 - Unspecified dementia, unspecified severity, without behavioral disturbance, psychotic disturbance, mood disturbance, and anxiety Status: Acute Assessment and Plan: Explained to the patient and the family that her confusion may be worse during this hospital stay and we would do our best to keep her comfortable and oriented. Subjective Date/time seen: Follow-up for non-STEMI and CHF. Stat are inked chest pain for 3 days prior to admission, peak troponin about 13. Found to be in CHF and junctional rhythm. Treated with aspirin, heparin, nitrates, carvedilol discontinued. 01/25/23 11:22 uneventful night, did well with no chest pain. Patient denies shortness of breath an RNs have not noted any problems. Pt asking when her procedure will be done tmr. Remains on 2 L O2. Elevated lactic acid of 2.4 however noted. Chest x-ray read as showing no change in mild CHF. Review of Systems Review of Systems: Denies any chest pain or shortness of breath, no bleeding, asking for breakfast and is hungry. No edema. Exam Narrative: Sweet elderly female, took out her hair curlers earlier is this morning, looks perky, good color, no distress sitting up in bed. Const: General: cooperative, healthy appearing and comfortable;
[2023-01-25] MEDS: PERFLUTREN LIPID MICROSPHERES 1.5 ML VIAL DILUTED TO 10 ML TOTAL VOLUME IV PUSH (11:54)
--- NOTE | 2023-01-25 11:55 | IVDEFINITY ---
Prior to administration of IV Definity the patient was educated on the risks and benefits of the imaging enhancing agent including potential adverse side effects. The patient verbalized understanding. Allergies were verified. No exclusion criteria were identified and at least one of the following inclusion criteria were met: 1) physician request, 2) patient technically difficult to image (per the [place] [employer] guidelines of two or more segments not discernable within the apical view), or 3) questionable left ventricular function. ?
[2023-01-25] MEDS: HEPARIN SOD/D5W 100 UNITS/ML 25,000 UNITS/250 ML BAG 10 UNITS IV CONT (13:40)
[2023-01-25] MEDS: ONDANSETRON INJ 4 MG/2 ML VIAL IV PUSH (15:28)
--- NOTE | 2023-01-25 15:51 | ECG_ITS ---
Measurements Intervals [place] Rate: 55 P: VT: 0 QRS: -16 QRSD: 99 T: 0 QT: 217 QTc: 209 Interpretive Statements JUNCTIONAL RHYTHM/rADYCARDIA LOW QRS VOLTAGE IN PRECORDIAL LEADS [QRS DEFLECTION < 1.0 mV IN CHEST LEADS] POOR R-WAVE PROGRESSION INFERIOR MYOCARDIAL INFARCTION [40+ ms Q WAVE AND/OR ST/T ABNORMALITY IN II/aVF], PROBABLY OLD WARNING: DATA QUALITY MAY AFFECT INTERPRETATION COMPARED TO ECG 01/25/2023 07:42:53 NO SIGNIFICANT CHANGES Electronically Signed On 01-26-2023 10:33:11 CDT by Tres Cazares M.D.
[2023-01-25] MEDS: SODIUM CHLORIDE 0.9% IV 200 ML IV CONT (16:00)
[2023-01-25 17:56] LABS: Partial Thromboplastin Time 95.3 SECONDS (22.3-36.8)
[2023-01-25] MEDS: SODIUM CHLORIDE 0.9% IV 250 ML IV CONT (18:30)
[2023-01-25] MEDS: FAMOTIDINE 20 MG/2 ML VIAL IV PUSH (20:23)
[2023-01-26] VITALS (28 sets, daily range): BP systolic 88–137; BP diastolic 46–99; PULSE 30–92; RESP 14–24; TEMP 36.2–36.6; O2SAT 93–100
[2023-01-26 02:45] LABS: Partial Thromboplastin Time 84.8 SECONDS (22.3-36.8)
[2023-01-26] MEDS: MORPHINE SULFATE (*CRX) 2 MG/ML INJ 1 MG IV PUSH (03:39)
[2023-01-26] MEDS: LEVALBUTEROL NEB 1.25 MG/3 ML 0.63 MG INHALATION ×2 (07:47→21:00)
[2023-01-26] MEDS: IPRATROPIUM BR 0.02% INH SOLN 0.5 MG/2.5 ML VIAL INHALATION ×2 (07:47→21:00)
--- NOTE | 2023-01-26 08:28 | PM.PNCARD ---
Progress Note: A&P Assessment and Plan (1) Non-ST elevation [place] (NSTEMI): Code(s): I21.4 - Non-ST elevation (NSTEMI) myocardial infarction Status: Acute Plan This is an elderly lady apparently without previous history of coronary disease who presents to the hospital over the weekend with some shortness of breath apparently had chest pain several days prior to presentation and troponin significantly elevated indicating evidence of an infarction probably several days prior to admission. Plans for angiography have been set in place by my partner. Discussed this with the patient and the family at the bedside this morning. Will proceed with catheterization this morning and further recommendations to be forthcoming Tres Cazares MD [facility] Subjective Date/time seen: Date of service: 01/26/23 08:28 Interval history: Follow-up visit in this 87-year-old woman with: Admission to the hospital over the weekend with shortness of breath clinical and lab evidence appears to indicate evidence of a recent NH with chest pain several days prior to presentation. The patient appears to be relatively comfortable this morning is lying supine in bed family at the bedside asking about plans for coronary angiography. Nature of the procedure was discussed in detail with them. Patient is understanding of this appears to be somewhat limited. Reported history of some degree of dementia Exam Const: General: comfortable and no acute distress Other: Very obese elderly lady no distress HENMT: Mouth: Yes moist mucous membranes Eyes: Sclera: sclerae normal Pupils: Equal, round and reactive pupils present Neck: Neck: supple and no JVD Resp: Effort & Inspection: normal respiratory effort Auscultation: clear to auscultation bilaterally Cardio: Rate: bradycardic Rhythm: regular rhythm Other: No audible murmur GI: GI Palp: Yes Soft to palpation Auscultation: normal bowel sounds Skin: General skin exam: normal color Neuro: Other: Alert and oriented x1. Extrem: Other: Extremities are warm perfusion adequate Objective Data Vital Signs Vital Signs: Vital Signs - 24 hr 01/25/23 08:47 01/25/23 08:47 01/25/23 09:02 Temperature Pulse Rate 52 L 54 L Respiratory Rate 20 20 Blood Pressure Pulse Oximetry 93 Oxygen Delivery Nasal Cannula Oxygen Flow Rate 2 01/25/23 09:19 01/25/23 10:00 01/25/23 09:50 Temperature Pulse Rate 62 59 L 72 Respiratory Rate Blood Pressure Pulse Oximetry Oxygen Delivery Oxygen Flow Rate 01/25/23 12:00 01/25/23 14:19 01/25/23 14:33 Temperature 36.5 C Pulse Rate 53 L 52 L 53 L Respiratory Rate 20 20 20 Blood Pressure 91/54 L Pulse Oximetry 97 Oxygen Delivery Oxygen Flow Rate 01/25/23 12:00 01/25/23 14:00 01/25/23 12:00 Temperature Pulse Rate 52 L 53 L Respiratory Rate Blood Pressure Pulse Oximetry 97 Oxygen Delivery Nasal Cannula Oxygen Flow Rate 1 01/25/23 16:00 01/25/23 16:00 01/25/23 16:00 Temperature 36.1 C L Pulse Rate 57 L 56 L Respiratory Rate 24 H Blood Pressure 90/42 L Pulse Oximetry 94 92 Oxygen Delivery Nasal Cannula Oxygen Flow Rate 2 01/25/23 16:50 01/25/23 18:00 01/25/23 19:23 Temperature 36.6 C 36.2 C L Pulse Rate 53 L 50 L 50 L Respiratory Rate 24 H 20 Blood Pressure 97/38 L 89/50 L Pulse Oximetry 94 97 Oxygen Delivery Oxygen Flow Rate 01/25/23 19:46 01/25/23 20:00 01/25/23 20:53 Temperature 36.5 C Pulse Rate 48 L 51 L Respiratory Rate 20 20 Blood Pressure 116/80 116/80 Pulse Oximetry 97 Oxygen Delivery Oxygen Flow Rate 01/25/23 20:58 01/25/23 21:04 01/25/23 20:00 Temperature Pulse Rate 51 L 52 L 50 L Respiratory Rate 20 Blood Pressure Pulse Oximetry 94 Oxygen Delivery Nasal Cannula Oxygen Flow Rate 2 01/25/23 20:00 01/25/23 22:00 01/25/23 23:38 Temperature 36.4 C Pulse Rate 48 L 48 L Respiratory
[2023-01-26] MEDS: DONEPEZIL HCL 5 MG TABLET BY MOUTH (08:42)
[2023-01-26] MEDS: ATORVASTATIN 40 MG TABLET PO (08:43)
[2023-01-26] MEDS: LOSARTAN POTASSIUM 25 MG TABLET PO (08:43)
[2023-01-26] MEDS: FAMOTIDINE 20 MG/2 ML VIAL IV PUSH ×2 (08:44→20:14)
--- NOTE | 2023-01-26 09:35 | WPDMODSED ---
Moderate Sedation Note-Pt Data Patient Data Diagnosis: Recent myocardial infarction Present Complaint: no complaints/patient confused Procedure to be performed/Plan: left heart catheterization Allergies Allergy/AdvReac Type Severity Reaction Status Date / Time No Known Allergies Allergy Verified 07/28/22 09:01 Home Medications Medication Instructions Recorded Confirmed Type carvedilol 12.5 mg tablet See Rx Instructions .Route 08/06/22 01/24/23 Rx .COMPLEX #180 tabs potassium chloride 20 mEq 20 meq PO DAILY #90 tabs 08/28/22 01/24/23 Rx tablet,extended release alendronate 70 mg tablet See Rx Instructions .Route 10/27/22 01/24/23 Rx .COMPLEX #12 tabs furosemide 20 mg tablet 20 mg PO QAM #90 tabs 11/05/22 01/24/23 Rx losartan 100 1 tablet PO DAILY #90 tabs 11/05/22 01/24/23 Rx mg-hydrochlorothiazide 25 mg tablet donepezil 5 mg tablet See Rx Instructions .Route 12/31/22 01/24/23 Rx .COMPLEX #90 tabs Current Medications: Active Medications Alendronate Sodium (Alendronate Sodium 70 Mg Tablet) 70 mg BY MOUTH [id number] [facility] Last Admin: 01/26/23 05:57 Dose: Not Given Atorvastatin Calcium (Atorvastatin 40 Mg Tablet) 40 mg PO DAILY [facility] Last Admin: 01/26/23 08:43 Dose: 40 mg Carvedilol (Carvedilol 12.5 Mg Tablet) 12.5 mg BY MOUTH BIDWM [facility] Last Admin: 01/25/23 09:19 Dose: 12.5 mg Donepezil HCl (Donepezil Hcl 5 Mg Tablet) 5 mg BY MOUTH QAM [facility] Last Admin: 01/26/23 08:42 Dose: 5 mg Famotidine (Famotidine 20 Mg/2 Ml Vial) 20 mg IV PUSH Q12HR [facility] Last Admin: 01/26/23 08:44 Dose: 20 mg Heparin Sodium (Porcine) (Heparin Sodium 5,000 Units/Ml Vial) 4,000 units IV PUSH PRN PRN PRN Reason: aPTT less than 55 seconds Last Admin: 01/24/23 20:42 Dose: 4,000 units Heparin Sodium (Porcine) (Heparin Sodium 5,000 Units/Ml Vial) 3,000 units IV PUSH PRN PRN PRN Reason: aPTT 55 - 70 seconds Last Admin: 01/25/23 11:16 Dose: 3,000 units Ceftriaxone Sodium (Rocephin 1 Gm/Ns 50 Ml) 1 gm in 50 mls @ 100 mls/hr IVPB Q24H [facility] Last Infusion: 01/25/23 14:45 Dose: Infused Azithromycin (Zithromax) 500 mg in 250 mls @ 250 mls/hr IVPB Q24H [facility] Last Infusion: 01/25/23 16:00 Dose: Infused Heparin Sodium/Dextrose (Heparin Sodium/D5w 100 Units/Ml) 25,000 units in 250 mls @ 10 mls/hr IV CONT .Q24H [facility]; Protocol Last Titration: 01/26/23 02:50 Dose: 1,000 units/hr, 10 mls/hr Sodium Chloride (Normal Saline Iv) 500 mls @ 100 mls/hr IV CONT .Q5H [facility] Ipratropium [place] (Ipratropium Br 0.02% Inh Soln 0.5 Mg/2.5 Ml Vial) 0.5 mg INHALATION Q6HRT [facility] Last Admin: 01/26/23 07:47 Dose: 0.5 mg Levalbuterol HCl (Levalbuterol Neb 1.25 Mg/3 Ml) 0.63 mg INHALATION Q6HRT [facility] Last Admin: 01/26/23 07:47 Dose: 0.63 mg Losartan Potassium (Losartan Potassium 25 Mg Tablet) 25 mg PO DAILY [facility] Stop: 02/24/23 08:59 Last Admin: 01/26/23 08:43 Dose: 25 mg Nitroglycerin (Nitroglycerin Sl 0.4 Mg Tablet) 0.4 mg SUBLINGUAL Q5MIN PRN PRN Reason: Chest Pain Nitroglycerin (Nitroglycerin Ointment 1 Inch Dose) 1 inch TOPICAL Q6H [facility] Last Admin: 01/25/23 18:27 Dose: Not Given Ondansetron HCl (Ondansetron Inj 4 Mg/2 Ml Vial) 4 mg IV PUSH Q6H PRN PRN Reason: Nausea And Vomiting Last Admin: 01/25/23 15:28 Dose: 4 mg Potassium Chloride (Potassium Chloride 20 Meq Packet (For Liquid)) 20 meq PO DAILY [facility] Sedation/Anesthesia: No previous sedation/anesthesia problems (including family history). [facility] Past Medical History Medical History (Updated 01/25/23 @ 11:39 by Anahy Christina MD) Aortic heart murmur Dementia Diastolic heart failure, NYHA class 1 Dyslipidemia Hypertension Obesity (BMI 30-39.9) Osteoporosis Parkinson disease Psoriasiform eruption Surgical History Surgical History Hx of cataract extraction S/P ORIF (open reduction internal fixation) fracture hip Family History Family History (Reviewed 01/24/23 @ 17:58
--- NOTE | 2023-01-26 09:38 | WPDCARDPROC ---
Cardiac Cath Procedure Note Date of procedure:: 01/26/23 Performing physician:: Tres Cazares MD Indication:: recent TN Brief clinical history:: this is an 87-year-old woman was admitted to the hospital over the weekend complaining of some shortness of breath she reported a significant episodeOf chest pain several days prior to admission. Her troponin level was elevated consistent with recent TN. This has declined towards normal. Her LV function has been found to be preserved. Her right ventricle is dysfunctional. She in this setting is being brought for angiography. The patient is in a junctional rhythm with heart rates generally in the 40 since admission. Procedure Procedure performed:: Left ventriculogram coronary angiogram Angio-Seal to right femoral artery Sedation/Medication given:: no sedation case start time 9:12 a.m. case end time 9:29 a.m. Access site:: the patient was brought to the cardiac catheterization lab in the postabsorptive state where the right femoral try angle was prepared and draped in the usual fashion. Because of her age/ frailty and bradycardia I elected not to administer any intravenous sedation. 1% lidocaine was infiltrated in the right femoral triangle and following this using the modified Seldinger technique the femoral artery was punctured and a 5 Estonian vascular sheath was placed. After this left heart catheterization was carried out. I used a 5 [place]ian angled pigtail catheter to document left-sided hemodynamics and to inject LV g in the MCNAIR projection. Following this I used standard 5 [place] FL4 catheter to engage inject the left coronary artery and a 5 [place] JR4 catheter to engage and inject the right coronary artery. The cineangiograms were then reviewed and the case was terminated. An angiogram was done of the femoral artery through the sheath after which an Angio-Seal device was deployed at the puncture site very good hemostatic result. There were no procedural complications and procedure was well tolerated. There was no evidence of groin hematoma upon her leaving the cardiac catheterization lab. Estimated blood loss:: 20 cc Procedure note:: see above Findings:: hemodynamics: The central aortic pressure is 104 over 56 left ventricle 104/5 end-diastolic pressure 18 there is no systolic gradient on pullback across the aortic valve. Left ventricle: The LV is hypertrophied and of normal dimension contractility is vigorous and hyperdynamic in all segments ejection fraction I would visually estimate to be 75%. The left main coronary artery is medium in caliber and nicely patent the left anterior descending is a medium caliber vessel extending down to around the apex. The diagonal and septal branches of the LAD are rather small. There is moderately calcification in the First 1/3 of the LAD but there are no stenotic lesions identified. the circumflex is a moderate caliber artery giving rise to a very small marginal branches and this circumflex trunk then gives rise to several medium-sized very tortuous posterolateral vessels. These vessels are nicely patent there is no significant disease in the circumflex. The 1st OM 1 branch has mild diffuse 40-50% stenosis. The right coronary artery is small in caliber and is 100% occluded proximally. Conclusion:: 1. Coronary artery disease with proximal RCA occlusion by history this likely occurred middle of last week. 2. Mild 40-50% stenosis of the 1st OM branch of the circumflex. 3. Significant proximal LAD calcification but with no stenotic lesions 4. hyperdynamic left ventricular systolic function Tres Cazares MD [facility]
--- NOTE | 2023-01-26 11:15 | PM.IMPN ---
Progress Note: A&P Assessment and Plan (1) Non-ST elevation [place] (NSTEMI): Code(s): I21.4 - Non-ST elevation (NSTEMI) myocardial infarction Status: Acute Assessment and Plan: Presented with shortness of breath, and chest pain for 3 days [place] elevated at 13.800, 6.880, 12.900, 11.100 EKG (01/24/23) shows regular rhythm, no ST elevation EKG (01/25/23) Bradycardia, WV anterior (recent), W[place] inferior (age indeterminate), no significant changes Chest xray shows opacities, of the lung bases, and left mid lung zone consistent with PNA vs atelectasis CTA does not indicate any PE, confirms opacities of the lung bases PNA vs Atelectasis vs pulmonary edema Cardiology consulted Supplemental oxygen Continue cavedilol, aspirin, nitro Continue heparin gtt for now Echo EF greater than 70% with grade 2 diastolic dysfunction Cardiac cath EF of 75% with total occlusion of the RCA, 40-50% with the OM of the circumflex NPO after midnight (2) Pneumonia: Code(s): J18.9 - Pneumonia, unspecified organism Status: Acute Assessment and Plan: CTA and chest xray indicate PNA vs Atelectasis Continue azithromycin Rocephin Blood cultures pending sputum cultures pending Supplemental oxygen as indicated Continue with nebulizer treatments (3) Diastolic heart failure, NYHA class 1: Code(s): I50.30 - Unspecified diastolic (congestive) heart failure Status: Acute Assessment and Plan: Echo from 02/03/2022 shows EF of 65-70% with grade 1 diastolic dysfunction Echo from 01/25/23 EF >70% with a grade 2 diastolic dysfunction CTA does indicated mild pulmonary edema appears to be an acute on chronic diastolic heart failure with exacerbation Continue lasix, losartan, and supplemental potassium Trend urine output Daily weights adjust therapy as indicated (4) Dyslipidemia: Code(s): E78.5 - Hyperlipidemia, unspecified Status: Acute Assessment and Plan: Low-fat diet Lipid panel Chol 211, LDL 136, HDL 49, triglyceride 134 Atorvastatin 40mg PO daily added (5) Hypertension: Qualifiers: Hypertension type: primary hypertension Qualified Code(s): I10 - Essential (primary) hypertension Code(s): I10 - Essential (primary) hypertension Status: Acute Assessment and Plan: Current BP is 96/51 Continue with Coreg, Lasix, and losartan Hold hydrochlorothiazide with lasix Continue to trend BP adjust therapy as indicated (6) Dementia: Code(s): F03.90 - Unspecified dementia, unspecified severity, without behavioral disturbance, psychotic disturbance, mood disturbance, and anxiety Status: Acute Assessment and Plan: Continue aricept Reorient often Encourage good wake sleep cycle trend mood and mentation (7) Hypokalemia: Code(s): E87.6 - Hypokalemia Status: Acute Assessment and Plan: K is 3.8 replace with 40 PO and IV recheck 1 hour post infusion replace as indicated Time Spent With Patient Time: 56 minutes Time with patient: Greater than 35 minutes Subjective Date/time seen: 01/26/23 111 Interval history: 01/26/231114 Patient is lying in bed 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 Patient denies any current chest pain, shortness a breath, nausea, vomiting, diarrhea or constipation. Talked to the family extensively about cardiac catheterization also talked to them about the next steps which is medical management this time. Gave them a copy of the cath report. All questions were answered and patient's family verbalized understanding. 01/25/23 0930 Patient is lying in bed. Patient's son and [id number] are present in the room. She is alert and oriented x 2. She did not know the year or situation. She denies any chest pain, nausea, vomiting, diarrhea, and constipation.
--- NOTE | 2023-01-26 11:15 | P.PNIM_ITS ---
Progress Note: A&P Assessment and Plan (1) Non-ST elevation [place] (NSTEMI): Code(s): I21.4 - Non-ST elevation (NSTEMI) myocardial infarction Status: Acute Assessment and Plan: * Presented with shortness of breath, and chest pain for 3 days * [place] elevated at 13.800, 6.880, 12.900, 11.100 * EKG (01/24/23) shows regular rhythm, no ST elevation * EKG (01/25/23) Bradycardia, SC anterior (recent), SC inferior (age ind eterminate), no significant changes * Chest xray shows opacities, of the lung bases, and left mid lung zone consistent with PNA vs atelectasis * CTA does not indicate any PE, confirms opacities of the lung bases PNA vs Atelectasis vs pulmonary edema * Cardiology consulted * Supplemental oxygen * Continue cavedilol, aspirin, nitro * Continue heparin gtt for now * Echo EF greater than 70% with grade 2 diastolic dysfunction * Cardiac cath EF of 75% with total occlusion of the RCA, 40-50% with the OM of the circumflex * NPO after midnight (2) Pneumonia: Code(s): J18.9 - Pneumonia, unspecified organism Status: Acute Assessment and Plan: * CTA and chest xray indicate PNA vs Atelectasis * Continue azithromycin Rocephin * Blood cultures pending * sputum cultures pending * Supplemental oxygen as indicated * Continue with nebulizer treatments (3) Diastolic heart failure, NYHA class 1: Code(s): I50.30 - Unspecified diastolic (congestive) heart failure Status: Acute Assessment and Plan: * Echo from 02/03/2022 shows EF of 65-70% with grade 1 diastolic dysfunction * Echo from 01/25/23 EF >70% with a grade 2 diastolic dysfunction * CTA does indicated mild pulmonary edema * appears to be an acute on chronic diastolic heart failure with exacerbation * Continue lasix, losartan, and supplemental potassium * Trend urine output * Daily weights * adjust therapy as indicated (4) Dyslipidemia: Code(s): E78.5 - Hyperlipidemia, unspecified Status: Acute Assessment and Plan: * Low-fat diet * Lipid panel Chol 211, LDL 136, HDL 49, triglyceride 134 * Atorvastatin 40mg PO daily added (5) Hypertension: Qualifiers: Hypertension type: primary hypertension Qualified Code(s): I10 - Essential (primary) hypertension Code(s): I10 - Essential (primary) hypertension Status: Acute Assessment and Plan: * Current BP is 96/51 * Continue with Coreg, Lasix, and losartan * Hold hydrochlorothiazide with lasix * Continue to trend BP * adjust therapy as indicated (6) Dementia: Code(s): F03.90 - Unspecified dementia, unspecified severity, without behavioral disturbance, psychotic disturbance, mood disturbance, and anxiety Status: Acute Assessment and Plan: * Continue aricept * Reorient often * Encourage good wake sleep cycle * trend mood and mentation (7) Hypokalemia: Code(s): E87.6 - Hypokalemia Status: Acute Assessment and Plan: * K is 3.8 * replace with 40 PO and IV * recheck 1 hour post infusion * replace as indicated Time Spent With Patient Time: 56 minutes Time with patient: Greater than 35 minutes Subjective Date/time seen: 01/26/23 1115 Interval history:
[2023-01-26 11:34] LABS: Basophils Absolute Auto 0.1 K/mm3 (0.0-0.1); Basophils Percent Auto 0.8 % (0.2-1.2); Eosinophils Percent Auto 0.5 % (0-4.4); Hematocrit 37.5 % (37.0-47.0); Hemoglobin 12.1 g/dL (12.0-15.0); Immature Granulocyte Absolute 0.06 K/mm3 (0.00-0.031); Immature Granulocyte Percent A 0.7 % (0-0.5); Lymphocytes Absolute Auto 1.95 K/mm3 (0.9-3.2); Lymphocytes Percent Auto 23.1 % (18.3-44.2); Mean Corpuscular HGB Conc 32.3 g/dl (32-36); Mean Corpuscular Hemoglobin 31.2 pg (26-34); Mean Corpuscular Volume 96.6 fl (80-100); Mean Platelet Volume 11.3 fl (7.4-10.4); Monocytes Absolute Auto 0.7 K/mm3 (0.1-0.6); Monocytes Percent Auto 8.5 % (2.6-8.5); Neutrophils Absolute Auto 5.6 K/mm3 (1.3-6.7); Neutrophils Percent Auto 66.4 % (45.5-73.1); Platelet Count Result 178 k/mm3 (150-375); Red Blood Count 3.88 M/mm3 (4.2-5.4); White Blood Count 8.4 K/mm3 (4.5-10.0)
[2023-01-26 11:49] LABS: Alanine Aminotransferase 124 U/L (6-35); Albumin Level 3.7 g/dL (3.5-5.1); Alkaline Phosphatase 60 U/L (38-126); Anion Gap 7 mmol/L (8-16); Aspartate Amino Transferase 119 U/L (14-36); Bilirubin,Total 0.6 mg/dL (0.2-1.3); Blood Urea Nitrogen 53 mg/dL (7-17); Calcium 7.6 mg/dL (8.4-10.2); Carbon Dioxide 29 mmol/L (22-30); Chloride 101 mmol/L (98-107); Estimated Glomerular Filt Rate 33; Glucose 141 mg/dL (65-110); Magnesium 1.9 mg/dL (1.6-2.3); Potassium 3.8 mmol/L (3.4-5.0); Sodium 137 mmol/L (137-145)
[2023-01-26] MEDS: POTASSIUM CHLORIDE 20 MEQ PACKET (FOR LIQUID) PO (12:42)
[2023-01-26] MEDS: SODIUM CHLORIDE 0.9% IV 1,000 ML 125 ML IV CONT (13:11)
[2023-01-26] MEDS: ONDANSETRON INJ 4 MG/2 ML VIAL IV PUSH (14:35)
--- NOTE | 2023-01-26 14:59 | PCCPR ---
Explained program to patients daughter. Pt was not accessible, having test done. Patients daughter does not feel that Cardiac Rehab will be appropriate due to patients deteriorated condition.
[2023-01-26] MEDS: METOCLOPRAMIDE HCL INJ 10 MG/2 ML VIAL IV PUSH (15:21)
[2023-01-26] MEDS: SODIUM CHLORIDE 0.9% IV 500 ML IV CONT (15:21)
[2023-01-27] VITALS (24 sets, daily range): BP systolic 109–160; BP diastolic 52–111; PULSE 43–88; RESP 16–26; TEMP 35.8–36.4; O2SAT 94–100
[2023-01-27 05:48] LABS: Partial Thromboplastin Time 28.1 SECONDS (22.3-36.8)
[2023-01-27] MEDS: IPRATROPIUM BR 0.02% INH SOLN 0.5 MG/2.5 ML VIAL INHALATION ×3 (08:57→21:00)
[2023-01-27] MEDS: LEVALBUTEROL NEB 1.25 MG/3 ML 0.63 MG INHALATION ×3 (08:58→21:00)
[2023-01-27] MEDS: POTASSIUM CHLORIDE 20 MEQ PACKET (FOR LIQUID) PO (10:09)
[2023-01-27] MEDS: LOSARTAN POTASSIUM 25 MG TABLET PO (10:09)
[2023-01-27] MEDS: FAMOTIDINE 20 MG/2 ML VIAL IV PUSH ×2 (10:09→20:39)
[2023-01-27] MEDS: DONEPEZIL HCL 5 MG TABLET BY MOUTH (10:11)
[2023-01-27] MEDS: ATORVASTATIN 40 MG TABLET PO (10:11)
--- NOTE | 2023-01-27 13:00 | P.PNIM_ITS ---
Progress Note: A&P Assessment and Plan (1) Non-ST elevation [place] (NSTEMI): Code(s): I21.4 - Non-ST elevation (NSTEMI) myocardial infarction Status: Acute Assessment and Plan: * Presented with shortness of breath, and chest pain for 3 days * [place] elevated at 13.800, 6.880, 12.900, 11.100 * EKG (01/24/23) shows regular rhythm, no ST elevation * EKG (01/25/23) Bradycardia, ID anterior (recent), ID inferior (age ind eterminate), no significant changes * Chest xray shows opacities, of the lung bases, and left mid lung zone consistent with PNA vs atelectasis * CTA does not indicate any PE, confirms opacities of the lung bases PNA vs Atelectasis vs pulmonary edema * Cardiology consulted * Supplemental oxygen * Continue cavedilol, aspirin, nitro * Heparin drip stopped * Start lovenox * Echo EF greater than 70% with grade 2 diastolic dysfunction * Cardiac cath EF of 75% with total occlusion of the RCA, 40-50% with the OM of the circumflex (2) Pneumonia: Code(s): J18.9 - Pneumonia, unspecified organism Status: Acute Assessment and Plan: * CTA and chest xray indicate PNA vs Atelectasis * Continue azithromycin Rocephin * Blood cultures gram positive cocci isolated, continue current antibiotics for now * sputum cultures pending * Supplemental oxygen as indicated * Continue with nebulizer treatments (3) Diastolic heart failure, NYHA class 1: Code(s): I50.30 - Unspecified diastolic (congestive) heart failure Status: Acute Assessment and Plan: * Echo from 02/03/2022 shows EF of 65-70% with grade 1 diastolic dysfunction * Echo from 01/25/23 EF >70% with a grade 2 diastolic dysfunction * CTA does indicated mild pulmonary edema * appears to be an acute on chronic diastolic heart failure with exacerbation * Restart losartan, and supplemental potassium * Restart lasix and spironolactone per cardiology * Trend urine output * Daily weights * adjust therapy as indicated (4) Dyslipidemia: Code(s): E78.5 - Hyperlipidemia, unspecified Status: Acute Assessment and Plan: * Low-fat diet * Lipid panel Chol 211, LDL 136, HDL 49, triglyceride 134 * Atorvastatin 40mg PO daily added (5) Hypertension: Qualifiers: Hypertension type: primary hypertension Qualified Code(s): I10 - Essential (primary) hypertension Code(s): I10 - Essential (primary) hypertension Status: Acute Assessment and Plan: * Current BP is 160/78 * Continue with Coreg, Lasix, and losartan * Hold hydrochlorothiazide with lasix * Continue to trend BP * adjust therapy as indicated (6) Dementia: Code(s): F03.90 - Unspecified dementia, unspecified severity, without behavioral disturbance, psychotic disturbance, mood disturbance, and anxiety Status: Acute Assessment and Plan: * Continue aricept * Reorient often * Encourage good wake sleep cycle * trend mood and mentation (7) Hypokalemia: Code(s): E87.6 - Hypokalemia Status: Acute Assessment and Plan: * K is 3.8 01/26/23 * replace as indicated * Trend labs (8) Junctional bradycardia: Code(s): R00.1 - Bradycardia, unspecified Status: Acute Assessment
--- NOTE | 2023-01-27 13:00 | PM.IMPN ---
Progress Note: A&P Assessment and Plan (1) Non-ST elevation PR (NSTEMI): Code(s): I21.4 - Non-ST elevation (NSTEMI) myocardial infarction Status: Acute Assessment and Plan: Presented with shortness of breath, and chest pain for 3 days Trops elevated at 13.800, 6.880, 12.900, 11.100 EKG (01/24/23) shows regular rhythm, no ST elevation EKG (01/25/23) Bradycardia, PR anterior (recent), PR inferior (age indeterminate), no significant changes Chest xray shows opacities, of the lung bases, and left mid lung zone consistent with PNA vs atelectasis CTA does not indicate any PE, confirms opacities of the lung bases PNA vs Atelectasis vs pulmonary edema Cardiology consulted Supplemental oxygen Continue cavedilol, aspirin, nitro Heparin drip stopped Start lovenox Echo EF greater than 70% with grade 2 diastolic dysfunction Cardiac cath EF of 75% with total occlusion of the RCA, 40-50% with the OM of the circumflex (2) Pneumonia: Code(s): J18.9 - Pneumonia, unspecified organism Status: Acute Assessment and Plan: CTA and chest xray indicate PNA vs Atelectasis Continue azithromycin Rocephin Blood cultures gram positive cocci isolated, continue current antibiotics for now sputum cultures pending Supplemental oxygen as indicated Continue with nebulizer treatments (3) Diastolic heart failure, NYHA class 1: Code(s): I50.30 - Unspecified diastolic (congestive) heart failure Status: Acute Assessment and Plan: Echo from 02/03/2022 shows EF of 65-70% with grade 1 diastolic dysfunction Echo from 01/25/23 EF >70% with a grade 2 diastolic dysfunction CTA does indicated mild pulmonary edema appears to be an acute on chronic diastolic heart failure with exacerbation Restart losartan, and supplemental potassium Restart lasix and spironolactone per cardiology Trend urine output Daily weights adjust therapy as indicated (4) Dyslipidemia: Code(s): E78.5 - Hyperlipidemia, unspecified Status: Acute Assessment and Plan: Low-fat diet Lipid panel Chol 211, LDL 136, HDL 49, triglyceride 134 Atorvastatin 40mg PO daily added (5) Hypertension: Qualifiers: Hypertension type: primary hypertension Qualified Code(s): I10 - Essential (primary) hypertension Code(s): I10 - Essential (primary) hypertension Status: Acute Assessment and Plan: Current BP is 160/78 Continue with Coreg, Lasix, and losartan Hold hydrochlorothiazide with lasix Continue to trend BP adjust therapy as indicated (6) Dementia: Code(s): F03.90 - Unspecified dementia, unspecified severity, without behavioral disturbance, psychotic disturbance, mood disturbance, and anxiety Status: Acute Assessment and Plan: Continue aricept Reorient often Encourage good wake sleep cycle trend mood and mentation (7) Hypokalemia: Code(s): E87.6 - Hypokalemia Status: Acute Assessment and Plan: K is 3.8 01/26/23 replace as indicated Trend labs (8) Junctional bradycardia: Code(s): R00.1 - Bradycardia, unspecified Status: Acute Assessment and Plan: Stable Continue telemetry (9) Urinary retention: Code(s): R33.9 - Retention of urine, unspecified Status: Acute Assessment and Plan: Urinary catheter present Start tamsulosin for now trend urine output voiding trial soon Time Spent With Patient Time: 48 minutes Time with patient: Greater than 35 minutes Subjective Date/time seen: 01/27/23 13:00 Interval history: 01/27/23 1300 Patient is resting comfortably in bed. She currently has no complaints including chest pain, nausea, vomiting, diarrhea constipation. She does have some shortness of breath however the oxygen is sti
--- NOTE | 2023-01-27 13:58 | PM.PNCARD ---
Progress Note: A&P Assessment and Plan (1) Non-ST elevation GA (NSTEMI): Code(s): I21.4 - Non-ST elevation (NSTEMI) myocardial infarction Status: Acute Assessment and Plan: Presents with shortness of breath and chest pain that had begun several days prior to admission. Underwent coronary angiogram on 01/26 that revealed coronary artery disease with proximal RCA occlusion, mild 40-50% stenosis of the 1st OM branch of the circumflex, and significant proximal LAD calcification but with no stenotic lesions. She has preserved LV systolic function but her RV is dysfunctional. Medical management of her CAD with ASA, statin Continue aggressive risk factor modification for CAD (2) Acute combined systolic and diastolic congestive heart failure: Code(s): I50.41 - Acute combined systolic (congestive) and diastolic (congestive) heart failure Status: Acute Assessment and Plan: RV dysfunction, Grade II diastolic dysfunction. Bilateral rales on pulmonary exam. Resume IV furosemide Check BMP in a.m. Fluid restriction O2 as needed Continue losartan, spironolactone Subjective Date/time seen: 01/27/23 13:58 Cardiology follow up for CAD, NSTEMI, CHF Interval history: Follow-up visit in this 87-year-old woman with: Admission to the hospital over the weekend with shortness of breath clinical and lab evidence appears to indicate evidence of a recent GA with chest pain several days prior to presentation. The patient appears to be relatively comfortable this morning is lying supine in bed family at the bedside asking about plans for coronary angiography. Nature of the procedure was discussed in detail with them. Patient is understanding of this appears to be somewhat limited. Reported history of some degree of dementia 01/27/2023: States she is feeling better today. Still has significant shortness of breath, mild amount of swelling. She denies any chest pain. Review of Systems Constitutional: Constitutional: Denies fever(s) and Reports weakness Eyes: Eyes: Reports no additional eye complaints ENT: Denies epistaxis Cardiovascular: Cardiovascular: Reports chest pain, Denies pedal edema, Denies lightheadedness, Reports dyspnea and Reports dyspnea on exertion Respiratory: Respiratory: Denies chest congestion, Reports dyspnea and Reports dyspnea on exertion Gastrointestinal: Gastrointestinal: Denies abdominal pain, Denies hematochezia, Denies heartburn and Denies hematemesis Genitourinary: Genitourinary: Denies hematuria Musculoskeletal: Musculoskeletal: Denies no additional musculoskeletal complaints and Reports stiffness Integumentary/Breasts: Skin/Breast: Reports system reviewed and no additional complaints, except as docu Neurologic: Reports system reviewed and no additional complaints, except as documented, Denies behavioral changes, Reports confusion and Reports weakness Psychiatric: Psychiatric: Denies behavioral changes and Reports confusion Exam Const: General: cooperative, healthy appearing, comfortable, no acute distress and confusion Orientation/consciousness: oriented to person, patient oriented x3 and confusion Other: Very obese elderly lady no distress HENMT: Mouth: Yes moist mucous membranes Eyes: General: appearance normal, both eyes and all related structures Sclera: sclerae normal Pupils: Equal, round and reactive pupils present EOM: EOMs intact bilaterally Neck: Neck: supple and no JVD Carotids: no bruits Resp: Effort & Inspection: normal respiratory effort Auscultation: not clear to auscultation bilaterally and rales (Half up bilaterally) Cardio: Rate: regular rate and bradycardic Rhythm: regular rhythm Heart sounds: no murmurs Other: No audible murmur GI: Inspection: normal to inspection Auscultation: normal bowel sounds Skin: General skin exam: normal color and no rashes or lesions noted Neuro: General: oriented to person, patient oriented x3 and conf
[2023-01-27] MEDS: ENOXAPARIN 40 MG/0.4 ML SYRINGE SUB-Q (16:08)
[2023-01-27] MEDS: FUROSEMIDE INJ 40 MG/4 ML VIAL IV PUSH (16:08)
--- NOTE | 2023-01-27 20:55 | PC.NURSE ---
patient is confused. thinks it is 1956. she is alert to self. repeatedly ask to go home. patient removed o2. it was placed back on. patient is to be moved to med/surg. rm [id number].
--- NOTE | 2023-01-27 23:52 | PC.NURSE ---
Pt arrived from [facility] this shift. Pt has been argumentative, aggressive, and threatening to call the police. Pt has been redirected multiple times and continues to get louder and more agitated. Pt continues to state she is being held against her will in a tunnel and will have us all arrested. Pt thinks that we are all lying to her and that is not a hospital. Pt continues to push her call light and when answered, screams into the [facility]. Security has been called, due to pt getting more agitated. Pt's daughter has also been called, and is on her way to talk with pt and sit bed side. Pt currently has a tech sitting with her until her family is arrived. Pt and daughter are currently on the phone, and pt is yelling. Pt is not able to be redirected after multiple attempts by multiple people. Pt is A&O x 1.
[2023-01-28] VITALS (13 sets, daily range): BP systolic 111–144; BP diastolic 54–79; PULSE 45–67; RESP 20–24; TEMP 36.3–36.4; O2SAT 95–100
[2023-01-28] MEDS: LORazepam INJ (*CRX) 2 MG/ML VIAL 0.5 MG IV PUSH (00:53)
[2023-01-28 06:07] LABS: Basophils Absolute Auto 0.1 K/mm3 (0.0-0.1); Basophils Percent Auto 0.7 % (0.2-1.2); Eosinophils Absolute Auto 0.1 K/mm3 (0-0.3); Eosinophils Percent Auto 1.1 % (0-4.4); Immature Granulocyte Absolute 0.04 K/mm3 (0.00-0.031); Immature Granulocyte Percent A 0.5 % (0-0.5); Lymphocytes Absolute Auto 2.24 K/mm3 (0.9-3.2); Lymphocytes Percent Auto 26.2 % (18.3-44.2); Mean Corpuscular HGB Conc 31.6 g/dl (32-36); Mean Corpuscular Hemoglobin 30.8 pg (26-34); Mean Corpuscular Volume 97.4 fl (80-100); Mean Platelet Volume 11.1 fl (7.4-10.4); Monocytes Percent Auto 11.3 % (2.6-8.5); Neutrophils Absolute Auto 5.2 K/mm3 (1.3-6.7); Neutrophils Percent Auto 60.2 % (45.5-73.1); Nucleated Red Blood Cells Perc 0.2 % (0.0-0.2); Platelet Count Result 197 k/mm3 (150-375); Red Cell Distribution Width 15.1 % (11.5-14.5); White Blood Count 8.6 K/mm3 (4.5-10.0)
[2023-01-28 06:38] LABS: Alanine Aminotransferase 173 U/L (6-35); Albumin Level 3.4 g/dL (3.5-5.1); Alkaline Phosphatase 64 U/L (38-126); Anion Gap 4 mmol/L (8-16); Aspartate Amino Transferase 106 U/L (14-36); Bilirubin,Total 0.6 mg/dL (0.2-1.3); Blood Urea Nitrogen 49 mg/dL (7-17); Calcium 7.5 mg/dL (8.4-10.2); Carbon Dioxide 34 mmol/L (22-30); Chloride 101 mmol/L (98-107); Estimated Glomerular Filt Rate 43; Glucose 127 mg/dL (65-110); Magnesium 2.1 mg/dL (1.6-2.3); Potassium 4.6 mmol/L (3.4-5.0); Sodium 139 mmol/L (137-145)
--- NOTE | 2023-01-28 08:32 | PM.PNCARD ---
Progress Note: A&P Assessment and Plan (1) Non-ST elevation MA (NSTEMI): Code(s): I21.4 - Non-ST elevation (NSTEMI) myocardial infarction Status: Acute Assessment and Plan: Presents with shortness of breath and chest pain that had begun several days prior to admission. Underwent coronary angiogram on 01/26 that revealed coronary artery disease with proximal RCA occlusion, mild 40-50% stenosis of the 1st OM branch of the circumflex, and significant proximal LAD calcification but with no stenotic lesions. She has preserved LV systolic function but her RV is dysfunctional. Medical management of her CAD with ASA, statin Continue aggressive risk factor modification for CAD (2) Acute combined systolic and diastolic congestive heart failure: Code(s): I50.41 - Acute combined systolic (congestive) and diastolic (congestive) heart failure Status: Acute Assessment and Plan: RV dysfunction, Grade II diastolic dysfunction. Bilateral rales on pulmonary exam. Increase furosemide to 40mg IV b.i.d Check BMP in a.m. Fluid restriction O2 as needed Continue losartan, spironolactone Add jardiance (3) Junctional bradycardia: Code(s): R00.1 - Bradycardia, unspecified Status: Acute Assessment and Plan: Mildly bradycardic and hemodynamically stable. Continue to monitor on telemetry. No indication for PPM at this time. Subjective Date/time seen: 01/28/23 08:32 Interval history: Follow-up visit in this 87-year-old woman with: Admission to the hospital over the weekend with shortness of breath clinical and lab evidence appears to indicate evidence of a recent MA with chest pain several days prior to presentation. The patient appears to be relatively comfortable this morning is lying supine in bed family at the bedside asking about plans for coronary angiography. Nature of the procedure was discussed in detail with them. Patient is understanding of this appears to be somewhat limited. Reported history of some degree of dementia 01/27/2023: States she is feeling better today. Still has significant shortness of breath, mild amount of swelling. She denies any chest pain. 01/28/2023: Had some delirium and agitation overnight, lethargic this morning. She does feel that her breathing is better today, though. Denies chest pain. Review of Systems Constitutional: Constitutional: Denies fever(s) and Reports weakness Eyes: Eyes: Reports no additional eye complaints ENT: Denies epistaxis Cardiovascular: Cardiovascular: Reports chest pain, Denies pedal edema, Denies lightheadedness, Reports dyspnea and Reports dyspnea on exertion Respiratory: Respiratory: Denies chest congestion, Reports dyspnea and Reports dyspnea on exertion Gastrointestinal: Gastrointestinal: Denies abdominal pain, Denies hematochezia, Denies heartburn and Denies hematemesis Genitourinary: Genitourinary: Denies hematuria Musculoskeletal: Musculoskeletal: Denies no additional musculoskeletal complaints and Reports stiffness Integumentary/Breasts: Skin/Breast: Reports system reviewed and no additional complaints, except as docu Neurologic: Reports system reviewed and no additional complaints, except as documented, Denies behavioral changes, Reports confusion and Reports weakness Psychiatric: Psychiatric: Denies behavioral changes and Reports confusion Exam Const: General: cooperative, healthy appearing, comfortable, no acute distress and confusion Orientation/consciousness: oriented to person, patient oriented x3 and confusion HENMT: Mouth: Yes moist mucous membranes Eyes: General: appearance normal, both eyes and all related structures Sclera: sclerae normal Pupils: Equal, round and reactive pupils present EOM: EOMs intact bilaterally Neck: Neck: supple and no JVD Carotids: no bruits Resp: Effort & Inspection: normal respiratory effort Auscultation: not clear to auscultation bilaterally and rales Cardi
[2023-01-28] MEDS: IPRATROPIUM BR 0.02% INH SOLN 0.5 MG/2.5 ML VIAL INHALATION ×2 (08:48→20:20)
[2023-01-28] MEDS: LEVALBUTEROL NEB 1.25 MG/3 ML 0.63 MG INHALATION ×2 (08:48→20:20)
[2023-01-28 08:58] LABS: Hepatitis B Surface Antigen Negative (Negative)
[2023-01-28 09:04] LABS: HAV RESULT Negative (Negative); Hepatitis B Core IgM Result Negative (Negative)
[2023-01-28 09:16] LABS: Hepatitis C Virus Antibody Negative (Negative)
[2023-01-28] MEDS: DONEPEZIL HCL 5 MG TABLET BY MOUTH (09:47)
[2023-01-28] MEDS: SPIRONOLACTONE 25 MG TABLET PO (09:47)
[2023-01-28] MEDS: AZITHROMYCIN 250 MG TABLET 500 MG PO (09:47)
[2023-01-28] MEDS: ATORVASTATIN 40 MG TABLET PO (09:47)
[2023-01-28] MEDS: CEFDINIR 300 MG CAPSULE PO ×2 (09:48→20:41)
[2023-01-28] MEDS: POTASSIUM CHLORIDE 20 MEQ PACKET (FOR LIQUID) PO (09:48)
[2023-01-28] MEDS: LOSARTAN POTASSIUM 25 MG TABLET PO (09:48)
[2023-01-28] MEDS: TAMSULOSIN HCL 0.4 MG CAPSULE PO (09:48)
[2023-01-28] MEDS: FUROSEMIDE INJ 40 MG/4 ML VIAL IV PUSH ×2 (09:48→16:57)
[2023-01-28] MEDS: ASPIRIN 81 MG ENTERIC TABLET PO (09:48)
[2023-01-28] MEDS: FAMOTIDINE 20 MG/2 ML VIAL IV PUSH ×2 (09:48→20:41)
[2023-01-28] MEDS: EMPAGLIFLOZIN 10 MG TABLET PO (09:50)
--- NOTE | 2023-01-28 10:00 | P.PNIM_ITS ---
Progress Note: A&P Assessment and Plan (1) Non-ST elevation OK (NSTEMI): Code(s): I21.4 - Non-ST elevation (NSTEMI) myocardial infarction Status: Acute Assessment and Plan: * Presented with shortness of breath, and chest pain for 3 days * Trops elevated at 13.800, 6.880, 12.900, 11.100 * EKG (01/24/23) shows regular rhythm, no ST elevation * EKG (01/25/23) Bradycardia, OK anterior (recent), OK inferior (age ind eterminate), no significant changes * Chest xray shows opacities, of the lung bases, and left mid lung zone consistent with PNA vs atelectasis * CTA does not indicate any PE, confirms opacities of the lung bases PNA vs Atelectasis vs pulmonary edema * Cardiology consulted * Supplemental oxygen * Continue carvedilol, aspirin, nitro * Heparin drip stopped * Continue Lovenox for DVT prophylaxis * Echo EF greater than 70% with grade 2 diastolic dysfunction * Cardiac cath EF of 75% with total occlusion of the RCA, 40-50% with the OM of the circumflex (2) Pneumonia: Code(s): J18.9 - Pneumonia, unspecified organism Status: Acute Assessment and Plan: * CTA and chest xray indicate PNA vs Atelectasis * Continue azithromycin Rocephin, switch to orals at this time, cefdinir and azithromycin * Blood cultures gram positive cocci isolated, continue current antibiotics for now * sputum cultures pending * Supplemental oxygen as indicated * Continue with nebulizer treatments (3) Diastolic heart failure, NYHA class 1: Code(s): I50.30 - Unspecified diastolic (congestive) heart failure Status: Acute Assessment and Plan: * Echo from 02/03/2022 shows EF of 65-70% with grade 1 diastolic dysfunction * Echo from 01/25/23 EF >70% with a grade 2 diastolic dysfunction * CTA does indicated mild pulmonary edema * appears to be an acute on chronic diastolic heart failure with exacerbation * Restart losartan, and supplemental potassium * Restart lasix 40mg IV BID and spironolactone 25mg PO Daily per cardiology * Trend urine output * Daily weights * adjust therapy as indicated (4) Dyslipidemia: Code(s): E78.5 - Hyperlipidemia, unspecified Status: Acute Assessment and Plan: * Low-fat diet * Lipid panel Chol 211, LDL 136, HDL 49, triglyceride 134 * Atorvastatin 40mg PO daily added (5) Hypertension: Qualifiers: Hypertension type: primary hypertension Qualified Code(s): I10 - Essential (primary) hypertension Code(s): I10 - Essential (primary) hypertension Status: Acute Assessment and Plan: * Current BP is 144/79 * Continue with Coreg, Lasix, and losartan * lasix restarted at this time * Continue to trend BP * adjust therapy as indicated (6) Dementia: Code(s): F03.90 - Unspecified dementia, unspecified severity, without behavioral disturbance, psychotic disturbance, mood disturbance, and anxiety Status: Acute Assessment and Plan: * Continue aricept * Reorient often * Encourage good wake sleep cycle * trend mood and mentation (7) Hypokalemia: Code(s): E87.6 - Hypokalemia Status: Acute Assessment and Plan: * K is 4.6 stable * Keep above 4.0 * replace as indicated * Trend labs (8) [facility]
--- NOTE | 2023-01-28 10:00 | PM.IMPN ---
Progress Note: A&P Assessment and Plan (1) Non-ST elevation RI (NSTEMI): Code(s): I21.4 - Non-ST elevation (NSTEMI) myocardial infarction Status: Acute Assessment and Plan: Presented with shortness of breath, and chest pain for 3 days Trops elevated at 13.800, 6.880, 12.900, 11.100 EKG (01/24/23) shows regular rhythm, no ST elevation EKG (01/25/23) Bradycardia, RI anterior (recent), RI inferior (age indeterminate), no significant changes Chest xray shows opacities, of the lung bases, and left mid lung zone consistent with PNA vs atelectasis CTA does not indicate any PE, confirms opacities of the lung bases PNA vs Atelectasis vs pulmonary edema Cardiology consulted Supplemental oxygen Continue carvedilol, aspirin, nitro Heparin drip stopped Continue Lovenox for DVT prophylaxis Echo EF greater than 70% with grade 2 diastolic dysfunction Cardiac cath EF of 75% with total occlusion of the RCA, 40-50% with the OM of the circumflex (2) Pneumonia: Code(s): J18.9 - Pneumonia, unspecified organism Status: Acute Assessment and Plan: CTA and chest xray indicate PNA vs Atelectasis Continue azithromycin Rocephin, switch to orals at this time, cefdinir and azithromycin Blood cultures gram positive cocci isolated, continue current antibiotics for now sputum cultures pending Supplemental oxygen as indicated Continue with nebulizer treatments (3) Diastolic heart failure, NYHA class 1: Code(s): I50.30 - Unspecified diastolic (congestive) heart failure Status: Acute Assessment and Plan: Echo from 02/03/2022 shows EF of 65-70% with grade 1 diastolic dysfunction Echo from 01/25/23 EF >70% with a grade 2 diastolic dysfunction CTA does indicated mild pulmonary edema appears to be an acute on chronic diastolic heart failure with exacerbation Restart losartan, and supplemental potassium Restart lasix 40mg IV BID and spironolactone 25mg PO Daily per cardiology Trend urine output Daily weights adjust therapy as indicated (4) Dyslipidemia: Code(s): E78.5 - Hyperlipidemia, unspecified Status: Acute Assessment and Plan: Low-fat diet Lipid panel Chol 211, LDL 136, HDL 49, triglyceride 134 Atorvastatin 40mg PO daily added (5) Hypertension: Qualifiers: Hypertension type: primary hypertension Qualified Code(s): I10 - Essential (primary) hypertension Code(s): I10 - Essential (primary) hypertension Status: Acute Assessment and Plan: Current BP is 144/79 Continue with Coreg, Lasix, and losartan lasix restarted at this time Continue to trend BP adjust therapy as indicated (6) Dementia: Code(s): F03.90 - Unspecified dementia, unspecified severity, without behavioral disturbance, psychotic disturbance, mood disturbance, and anxiety Status: Acute Assessment and Plan: Continue aricept Reorient often Encourage good wake sleep cycle trend mood and mentation (7) Hypokalemia: Code(s): E87.6 - Hypokalemia Status: Acute Assessment and Plan: K is 4.6 stable Keep above 4.0 replace as indicated Trend labs (8) Junctional bradycardia: Code(s): R00.1 - Bradycardia, unspecified Status: Acute Assessment and Plan: Stable Continue telemetry (9) Urinary retention: Code(s): R33.9 - Retention of urine, unspecified Status: Acute Assessment and Plan: Urinary catheter present Start tamsulosin for now trend urine output voiding trial soon (10) KARLA (acute kidney injury): Code(s): N17.9 - Acute kidney failure, unspecified Status: Acute Assessment and Plan: BUN/Cr elevated above baseline up to 53/1.50 Baseline creatinine is 1.0 Fluids given with no response most likely r
[2023-01-28] MEDS: ENOXAPARIN 40 MG/0.4 ML SYRINGE SUB-Q (13:59)
--- NOTE | 2023-01-28 14:21 | PC.NURSE ---
On 01/28/23, the student, Mirlande Naidu, provided care and completed [facility] documentation on this patient. I have reviewed the student's documentation and agree with the findings.
[2023-01-28] MEDS: QUEtiapine FUMARATE 25 MG TABLET PO (20:41)
[2023-01-29] VITALS (10 sets, daily range): BP systolic 97–124; BP diastolic 56–66; PULSE 57–115; RESP 20–22; TEMP 36.1–37.7; O2SAT 75–100
[2023-01-29] MEDS: LEVALBUTEROL NEB 1.25 MG/3 ML 0.63 MG INHALATION (01:49)
[2023-01-29] MEDS: IPRATROPIUM BR 0.02% INH SOLN 0.5 MG/2.5 ML VIAL INHALATION (01:49)
[2023-01-29 06:18] LABS: Basophils Absolute Auto 0.1 K/mm3 (0.0-0.1); Eosinophils Absolute Auto 0.2 K/mm3 (0-0.3); Eosinophils Percent Auto 2.1 % (0-4.4); Hematocrit 37.4 % (37.0-47.0); Hemoglobin 12.1 g/dL (12.0-15.0); Immature Granulocyte Absolute 0.08 K/mm3 (0.00-0.031); Lymphocytes Absolute Auto 3.04 K/mm3 (0.9-3.2); Lymphocytes Percent Auto 37.3 % (18.3-44.2); Mean Corpuscular HGB Conc 32.4 g/dl (32-36); Mean Corpuscular Hemoglobin 31.8 pg (26-34); Mean Corpuscular Volume 98.2 fl (80-100); Mean Platelet Volume 10.8 fl (7.4-10.4); Monocytes Absolute Auto 0.7 K/mm3 (0.1-0.6); Monocytes Percent Auto 8.9 % (2.6-8.5); Neutrophils Absolute Auto 4.1 K/mm3 (1.3-6.7); Neutrophils Percent Auto 49.7 % (45.5-73.1); Platelet Count Result 204 k/mm3 (150-375); Red Blood Count 3.81 M/mm3 (4.2-5.4); Red Cell Distribution Width 15.1 % (11.5-14.5); White Blood Count 8.2 K/mm3 (4.5-10.0)
[2023-01-29 06:27] LABS: Alanine Aminotransferase 153 U/L (6-35); Albumin Level 3.4 g/dL (3.5-5.1); Alkaline Phosphatase 68 U/L (38-126); Anion Gap 4 mmol/L (8-16); Aspartate Amino Transferase 67 U/L (14-36); Bilirubin,Total 0.7 mg/dL (0.2-1.3); Blood Urea Nitrogen 41 mg/dL (7-17); Calcium 7.6 mg/dL (8.4-10.2); Carbon Dioxide 33 mmol/L (22-30); Chloride 102 mmol/L (98-107); Estimated Glomerular Filt Rate 53; Glucose 107 mg/dL (65-110); Potassium 3.8 mmol/L (3.4-5.0); Sodium 139 mmol/L (137-145)
[2023-01-29 06:30] LABS: Magnesium 2.1 mg/dL (1.6-2.3); Phosphorus 3.3 mg/dL (2.5-4.5)
[2023-01-29] MEDS: METOPROLOL TARTRATE INJ 5 MG/5 ML VIAL IV PUSH (06:35)
[2023-01-29 06:41] LABS: NT Pro B Type Natriuretic Pept 5560 pg/mL (19.9-100)
--- NOTE | 2023-01-29 07:40 | PDCODEBLUE ---
Code Blue Note Code Blue Note Time Arrived at Code Blue: 0740 Initial Rhythm on Arrival: V. Fib Cardiac Rhythm Post Code: Sinus tachycardia with PAC/PVC Code Blue Summary: rapid response was called. Arrived to the patient room and it was noted that the patient was in VFib. Felix luz elena was called and CPR was already initiated prior to arrival. patient was given 1 Epi, an initial rhythm check did show VFib. Patient received 1 shock and 160 joules. About 30 seconds to 1 minute into CPR patient was grabbing and was breathing on her own. CPR was placed on hold and rhythm was noted to be sinus tach with PACs PVCs. Patient was able to follow commands. Chest x-ray was performed. ICU physician was also present. Patient was supported respiratory with bag valve mask with respiratory backing the patient 1 breath every 6 Seconds. Patient was then transferred to ICU. Family has been updated. Blood pressure was noted to be 170/120 and other vital signs remained stable. Currently patient in bed stable.
--- NOTE | 2023-01-29 07:40 | PM.IMPN ---
Progress Note: A&P Assessment and Plan (1) Non-ST elevation VT (NSTEMI): Code(s): I21.4 - Non-ST elevation (NSTEMI) myocardial infarction Status: Acute Assessment and Plan: Presented with shortness of breath, and chest pain for 3 days Trops elevated at 13.800, 6.880, 12.900, 11.100 EKG (01/24/23) shows regular rhythm, no ST elevation EKG (01/25/23) Bradycardia, VT anterior (recent), VT inferior (age indeterminate), no significant changes Chest xray shows opacities, of the lung bases, and left mid lung zone consistent with PNA vs atelectasis CTA does not indicate any PE, confirms opacities of the lung bases PNA vs Atelectasis vs pulmonary edema Cardiology consulted Supplemental oxygen Continue carvedilol, aspirin, nitro Heparin drip stopped Continue Lovenox for DVT prophylaxis Echo EF greater than 70% with grade 2 diastolic dysfunction Cardiac cath EF of 75% with total occlusion of the RCA, 40-50% with the OM of the circumflex (2) Pneumonia: Code(s): J18.9 - Pneumonia, unspecified organism Status: Acute Assessment and Plan: CTA and chest xray indicate PNA vs Atelectasis Continue azithromycin Rocephin, switch to orals at this time, cefdinir and azithromycin Blood cultures gram positive cocci isolated, continue current antibiotics for now sputum cultures pending Supplemental oxygen as indicated Continue with nebulizer treatments Chest xray show central congestive changes (3) Diastolic heart failure, NYHA class 1: Code(s): I50.30 - Unspecified diastolic (congestive) heart failure Status: Acute Assessment and Plan: Echo from 02/03/2022 shows EF of 65-70% with grade 1 diastolic dysfunction Echo from 01/25/23 EF >70% with a grade 2 diastolic dysfunction CTA does indicated mild pulmonary edema appears to be an acute on chronic diastolic heart failure with exacerbation Restart losartan, and supplemental potassium Restart lasix 40mg IV BID and spironolactone 25mg PO Daily per cardiology Trend urine output Daily weights adjust therapy as indicated Repeat xray showed central congestive changes and probably minimal bibasilar pulmonary edema (4) Dyslipidemia: Code(s): E78.5 - Hyperlipidemia, unspecified Status: Acute Assessment and Plan: Low-fat diet Lipid panel Chol 211, LDL 136, HDL 49, triglyceride 134 Atorvastatin 40mg PO daily added (5) Hypertension: Qualifiers: Hypertension type: primary hypertension Qualified Code(s): I10 - Essential (primary) hypertension Code(s): I10 - Essential (primary) hypertension Status: Acute Assessment and Plan: Current BP is 124/57 Continue with Coreg, Lasix, and losartan lasix restarted at this time Continue to trend BP adjust therapy as indicated (6) Dementia: Code(s): F03.90 - Unspecified dementia, unspecified severity, without behavioral disturbance, psychotic disturbance, mood disturbance, and anxiety Status: Acute Assessment and Plan: Continue aricept Reorient often Encourage good wake sleep cycle trend mood and mentation (7) Hypokalemia: Code(s): E87.6 - Hypokalemia Status: Acute Assessment and Plan: K is 3.8 stable Keep above 4.0 replace as indicated Trend labs (8) Junctional bradycardia: Code(s): R00.1 - Bradycardia, unspecified Status: Acute Assessment and Plan: Stable V.Fib on the monitor Continue telemetry (9) Urinary retention: Code(s): R33.9 - Retention of urine, unspecified Status: Acute Assessment and Plan: Urinary catheter present Start tamsulosin for now trend urine output voiding trial soon (10) KARLA (acute kidney injury): Code(s): N17.9 - Acute kidney failure, unspecified S
--- NOTE | 2023-01-29 07:40 | P.PNIM_ITS ---
Progress Note: A&P Assessment and Plan (1) Non-ST elevation [place] (NSTEMI): Code(s): I21.4 - Non-ST elevation (NSTEMI) myocardial infarction Status: Acute Assessment and Plan: * Presented with shortness of breath, and chest pain for 3 days * Trops elevated at 13.800, 6.880, 12.900, 11.100 * EKG (01/24/23) shows regular rhythm, no ST elevation * EKG (01/25/23) Bradycardia, MN anterior (recent), MN inferior (age ind eterminate), no significant changes * Chest xray shows opacities, of the lung bases, and left mid lung zone consistent with PNA vs atelectasis * CTA does not indicate any PE, confirms opacities of the lung bases PNA vs Atelectasis vs pulmonary edema * Cardiology consulted * Supplemental oxygen * Continue carvedilol, aspirin, nitro * Heparin drip stopped * Continue Lovenox for DVT prophylaxis * Echo EF greater than 70% with grade 2 diastolic dysfunction * Cardiac cath EF of 75% with total occlusion of the RCA, 40-50% with the OM of the circumflex (2) Pneumonia: Code(s): J18.9 - Pneumonia, unspecified organism Status: Acute Assessment and Plan: * CTA and chest xray indicate PNA vs Atelectasis * Continue azithromycin Rocephin, switch to orals at this time, cefdinir and azithromycin * Blood cultures gram positive cocci isolated, continue current antibiotics for now * sputum cultures pending * Supplemental oxygen as indicated * Continue with nebulizer treatments * Chest xray show central congestive changes (3) Diastolic heart failure, NYHA class 1: Code(s): I50.30 - Unspecified diastolic (congestive) heart failure Status: Acute Assessment and Plan: * Echo from 02/03/2022 shows EF of 65-70% with grade 1 diastolic dysfunction * Echo from 01/25/23 EF >70% with a grade 2 diastolic dysfunction * CTA does indicated mild pulmonary edema * appears to be an acute on chronic diastolic heart failure with exacerbation * Restart losartan, and supplemental potassium * Restart lasix 40mg IV BID and spironolactone 25mg PO Daily per cardiology * Trend urine output * Daily weights * adjust therapy as indicated * Repeat xray showed central congestive changes and probably minimal bibasilar pulmonary edema (4) Dyslipidemia: Code(s): E78.5 - Hyperlipidemia, unspecified Status: Acute Assessment and Plan: * Low-fat diet * Lipid panel Chol 211, LDL 136, HDL 49, triglyceride 134 * Atorvastatin 40mg PO daily added (5) Hypertension: Qualifiers: Hypertension type: primary hypertension Qualified Code(s): I10 - Essential (primary) hypertension Code(s): I10 - Essential (primary) hypertension Status: Acute Assessment and Plan: * Current BP is 124/57 * Continue with Coreg, Lasix, and losartan * lasix restarted at this time * Continue to trend BP * adjust therapy as indicated (6) Dementia: Code(s): F03.90 - Unspecified dementia, unspecified severity, without behavioral disturbance, psychotic disturbance, mood disturbance, and anxiety Status: Acute Assessment and Plan: * Continue aricept * Reorient often * Encourage good wake sleep cycle * trend mood and mentation (7) Hypokalemia: Code(s): E87.6 - Hypokalemia Status: Acute Assessment and Plan:
--- NOTE | 2023-01-29 07:56 | ECG_ITS ---
Measurements Intervals [place] Rate: 108 P: NE: 0 QRS: 1 QRSD: 144 T: -29 QT: 371 QTc: 499 Interpretive Statements LIKELY ATRIAL FIBRILLATION WITH RAPID VENTRICULAR RESPONSE WITH ABERRANT CONDUCTION OR VENTRICULAR PREMATURE COMPLEXES RIGHT BUNDLE BRANCH BLOCK COMPARED TO ECG 01/25/2023 15:45:17 ATRIAL FIBRILLATION NOW PRESENT ABERRANT CONDUCTION OF SUPRAVENTRICULAR BEAT(S) NOW PRESENT RIGHT BUNDLE BRANCH BLOCK PRESENT NOW Electronically Signed On 01-29-2023 18:26:22 CDT by Raffaele Aquino M.D.
--- NOTE | 2023-01-29 08:05 | PC.NURSE ---
At 0736, this nurse noticed that patient's heart rhythm on the security monitor was V Fib / V Tach. This nurse immediately went into the patient's room to find patient with labored breathing, weak pulse, and unresponsive to sternal rubbing. Compressions were started and rapid response team called. Patient transferred to ICU 5.
[2023-01-29 08:06] LABS: PCO2 ABG 44.3 mmHg (35.0-45.0); pH ABG 7.461 (7.350-7.450)
[2023-01-29 08:07] LABS: Base Excess ABG 6.3 mEq/l (+/-2.0); Carboxyhemoglobin 0.1 % THb (0-2.0); HCO3 ABG 30.9 mEq/l (22.0-26.0); Methemoglobin ABG 0.3 %THb (0-1.5); Oxygen Content ABG 16.9 %vol (16.0-22.0); Oxygen Saturation ABG 93.3 % (95.0-100.0); Oxyhemoglobin 90.9 % THb (90.0-100.0); PO2 ABG 63.7 mmHg (80.0-100.0); Reduced Hemoglobin 8.7 %THb (0-5.0); Total Hemoglobin 12.8 g/dL (12.0-18.0)
[2023-01-29 08:08] LABS: Device NON-REBREATHER MASK; Fractional Inspired Oxygen 100 %; Modified Allen's Test Unable to perform; PO2 FiO2 Ratio Arterial Blood 0.64 %; Site Drawn RIGHT RADIAL
--- NOTE | 2023-01-29 08:29 | PC.NURSE ---
This patient, Jackie Garcia, was received from [[id number]] on 01/29/23 at 0754.
[2023-01-29] MEDS: FUROSEMIDE INJ 40 MG/4 ML VIAL IV PUSH (08:37)
[2023-01-29 08:41] LABS: Basophils Absolute Auto 0.1 K/mm3 (0.0-0.1); Basophils Percent Auto 0.7 % (0.2-1.2); Eosinophils Absolute Auto 0.1 K/mm3 (0-0.3); Hematocrit 39.8 % (37.0-47.0); Hemoglobin 12.7 g/dL (12.0-15.0); Immature Granulocyte Absolute 0.18 K/mm3 (0.00-0.031); Immature Granulocyte Percent A 1.7 % (0-0.5); Lymphocytes Absolute Auto 3.15 K/mm3 (0.9-3.2); Lymphocytes Percent Auto 29.1 % (18.3-44.2); Mean Corpuscular HGB Conc 31.9 g/dl (32-36); Mean Corpuscular Hemoglobin 31.6 pg (26-34); Mean Platelet Volume 10.9 fl (7.4-10.4); Monocytes Absolute Auto 0.7 K/mm3 (0.1-0.6); Monocytes Percent Auto 6.5 % (2.6-8.5); Neutrophils Absolute Auto 6.6 K/mm3 (1.3-6.7); Platelet Count Result 198 k/mm3 (150-375); Red Blood Count 4.02 M/mm3 (4.2-5.4); Red Cell Distribution Width 15.1 % (11.5-14.5); White Blood Count 10.8 K/mm3 (4.5-10.0)
[2023-01-29 08:43] LABS: Ammonia < 9 umol/L (9-30); Lactic Acid Reflex 2.9 mmol/L (0.7-2.0)
[2023-01-29 08:47] LABS: Alanine Aminotransferase 168 U/L (6-35); Albumin Level 3.8 g/dL (3.5-5.1); Alkaline Phosphatase 69 U/L (38-126); Anion Gap 3 mmol/L (8-16); Aspartate Amino Transferase 94 U/L (14-36); Bilirubin,Total 0.8 mg/dL (0.2-1.3); Blood Urea Nitrogen 40 mg/dL (7-17); Calcium 7.8 mg/dL (8.4-10.2); Carbon Dioxide 35 mmol/L (22-30); Chloride 102 mmol/L (98-107); Estimated Glomerular Filt Rate 47; Glucose 152 mg/dL (65-110); INR 1.2; Partial Thromboplastin Time 25.8 SECONDS (22.3-36.8); Phosphorus 3.6 mg/dL (2.5-4.5); Potassium 3.7 mmol/L (3.4-5.0); Prothrombin Time 14.4 Seconds (11.1-14.7); Sodium 140 mmol/L (137-145)
--- NOTE | 2023-01-29 08:56 | PM.PNCARD ---
Progress Note: A&P Assessment and Plan (1) Non-ST elevation [place] (NSTEMI): Code(s): I21.4 - Non-ST elevation (NSTEMI) myocardial infarction Status: Acute Assessment and Plan: Presents with shortness of breath and chest pain that had begun several days prior to admission. Underwent coronary angiogram on 01/26 that revealed coronary artery disease with proximal RCA occlusion, mild 40-50% stenosis of the 1st OM branch of the circumflex, and significant proximal LAD calcification but with no stenotic lesions. She has preserved LV systolic function but her RV is dysfunctional. Medical management was being pursued. However, following cardiac arrest this morning and family meeting, patient is now comfort care. (2) Acute combined systolic and diastolic congestive heart failure: Code(s): I50.41 - Acute combined systolic (congestive) and diastolic (congestive) heart failure Status: Acute Assessment and Plan: RV dysfunction, Grade II diastolic dysfunction. As above. Comfort care. (3) Junctional bradycardia: Code(s): R00.1 - Bradycardia, unspecified Status: Acute Assessment and Plan: Now in atrial fibrillation Subjective Date/time seen: 01/29/23 08:56 Interval history: Follow-up visit in this 87-year-old woman with: Admission to the hospital over the weekend with shortness of breath clinical and lab evidence appears to indicate evidence of a recent LA with chest pain several days prior to presentation. The patient appears to be relatively comfortable this morning is lying supine in bed family at the bedside asking about plans for coronary angiography. Nature of the procedure was discussed in detail with them. Patient is understanding of this appears to be somewhat limited. Reported history of some degree of dementia 01/27/2023: States she is feeling better today. Still has significant shortness of breath, mild amount of swelling. She denies any chest pain. 01/28/2023: Had some delirium and agitation overnight, lethargic this morning. She does feel that her breathing is better today, though. Denies chest pain. 01/29/2023: VF arrest this morning on the floor, has been transferred to ICU at this point. CXR with increased pulmonary edema. EKG now showing atrial fibrillation, new RBBB. Review of Systems Constitutional: Constitutional: Denies fever(s) and Reports weakness Eyes: Eyes: Reports no additional eye complaints ENT: Denies epistaxis Cardiovascular: Cardiovascular: Reports chest pain, Denies pedal edema, Denies lightheadedness, Reports dyspnea and Reports dyspnea on exertion Respiratory: Respiratory: Denies chest congestion, Reports dyspnea and Reports dyspnea on exertion Gastrointestinal: Gastrointestinal: Denies abdominal pain, Denies hematochezia, Denies heartburn and Denies hematemesis Genitourinary: Genitourinary: Denies hematuria Musculoskeletal: Musculoskeletal: Denies no additional musculoskeletal complaints and Reports stiffness Integumentary/Breasts: Skin/Breast: Reports system reviewed and no additional complaints, except as docu Neurologic: Reports system reviewed and no additional complaints, except as documented, Denies behavioral changes, Reports confusion and Reports weakness Psychiatric: Psychiatric: Denies behavioral changes and Reports confusion Exam Const: General: cooperative, no acute distress, confusion, ill appearing and lethargic; No healthy appearing Orientation/consciousness: lethargic HENMT: Mouth: Yes moist mucous membranes Eyes: General: appearance normal, both eyes and all related structures Sclera: sclerae normal Pupils: Equal, round and reactive pupils present EOM: EOMs intact bilaterally Neck: Neck: supple and no JVD Carotids: no bruits Resp: Effort & Inspection: normal respiratory effort Auscultation: not clear to auscultation bilaterally and rales Cardio: Rate: regular rate Rhythm: abnormal rhythm Heart sound
[2023-01-29] MEDS: CEFEPIME 2 GM/NS 50 ML 2 GM/50 ML BAG IVPB (09:09)
[2023-01-29] MEDS: FAMOTIDINE 20 MG/2 ML VIAL IV PUSH (09:10)
--- NOTE | 2023-01-29 09:46 | WPDCNINT ---
Assessment and Plan Assessment and plan (1) Cardiac arrest with ventricular fibrillation: Code(s): I46.9 - Cardiac arrest, cause unspecified; I49.01 - Ventricular fibrillation Status: Acute Assessment and Plan: Patient was on the medical floor, code luz elena was called, upon my arrival patient had VFib arrest, CPR was in progress. Patient was a do not intubate only CPR. Patient was defibrillated x1, for additional details on the code blue please refer to code sheet -ROSC was attained and patient was brought to the ICU. -in the ICU patient was placed on high-flow oxygen therapy via Vapotherm, patient was still desaturating and non-rebreather was also placed as she was a mouth breather. -patient was moaning in pain likely secondary to CPR -patient's and daughter, Ayana arrived in the ICU, had a long discussion with both of them regarding patient's prognosis. They decided and requested that patient be a DNR and comfort measures only -cardiology and hospitalist were notified -comfort measure orders were placed in the chart, (2) Acute combined systolic and diastolic congestive heart failure: Code(s): I50.41 - Acute combined systolic (congestive) and diastolic (congestive) heart failure Status: Acute Assessment and Plan: CXR post arrest showed pulmonary edema, patient was given Lasix IV Discussed with cardiology and recommended that the patient be started on amiodarone infusion, the family decided patient to be comfort measures only (3) Dementia: Code(s): F03.90 - Unspecified dementia, unspecified severity, without behavioral disturbance, psychotic disturbance, mood disturbance, and anxiety Status: Acute Assessment and Plan: History of dementia (4) Non-ST elevation [place] (NSTEMI): Code(s): I21.4 - Non-ST elevation (NSTEMI) myocardial infarction Status: Acute Assessment and Plan: Patient presented with chest pain, shortness of breath, NSTEMI -cardiac catheterization was done on 01/26 showed total occlusion of the RCA -medical management was opted Plan DVT prophylaxis: Lovenox Stress ulcer prophylaxis: Nutrition: NPO Code Status: DNR/comfort measures Critical Care Time Spent: 55 minute patient's and daughterAyana arrived in the ICU, had a long discussion with both of them regarding patient's prognosis. They decided and requested that patient be a DNR and comfort measures only Due to a high probability of clinically significant, life threatening deterioration, the patient required my highest level of preparedness to intervene emergently and I personally spent this critical care time directly and personally managing the patient. This critical care time included obtaining a history; examining the patient; pulse oximetry; ordering and review of studies; arranging urgent treatment with development of a management plan; evaluation of patient's response to treatment; frequent reassessment; and discussions with other providers. It was exclusive of separately billable procedures and treating other patients and teaching time. Please see Assessment and Plan section and the rest of the note for further information on patient assessment and treatment This dictation may have been done utilizing a voice recognition system. Attempts have been made to correct errors. However, there may be uncorrected grammatical, spelling, and recognitions errors present. Retail Seasonal Specialist Consult Note Consult date: 01/29/23 Reason for consult: Cardiac arrest, Recent NSTEMI, congestive heart failure, pneumonia, junctional bradycardia, acute kidney injury HPI: Jackie Garcia is a 87 year old female with significant past medical history of dementia, systolic and diastolic heart failure, dyslipidemia, essential hypertension, Parkinson's disease, aortic heart murmur presented the ED on 01/24/2023 with complains of shortness of breath and chest pain x3 days patient complained of substernal chest pain
[2023-01-29] MEDS: MORPHINE SULFATE INJ (*CRX) 10 MG/ML AMP 5 MG IV PUSH (10:32)
[2023-01-29] MEDS: LORazepam INJ (*CRX) 2 MG/ML VIAL IV PUSH ×6 (10:32→23:16)
[2023-01-29 11:31] LABS: Reflex Lactic Acid Yes or No Add Lactic
[2023-01-29] MEDS: MORPHINE SULFATE (*CRX) 2 MG/ML INJ IV PUSH ×4 (11:58→23:16)
--- NOTE | 2023-01-29 14:08 | PDCODEBLUE ---
Code Blue Note Code Blue Note Time Arrived at Code Blue: 0742 Initial Rhythm on Arrival: Ventricular Fibrillation Airway Management: Pt being bagged on arrival Chest Compressions: In process on arrival to bedside Result of Code Toby: ROSC Cardiac Rhythm Post Code: normal sinus rhythm Code Blue Summary: Felix laguna was called at 7:40 a.m., initial rhythm was VFib on the monitor, I arrived at 7:42 a.m., monitor showed VFib, patient was defibrillated x1, received epinephrine x1 and bicarb x1 before return of spontaneous circulation at 7:44 a.m.. Patient was a modified code, no intubation but okay for CPR. After ROSC patient was able to squeeze my fingers and follows simple commands in the lower extremities. Patient was transferred to the ICU for further management. In the ICU discussed with the and patient's daughter and they decided and requested for DNR and comfort measures -hospitalist and equestrian trainer were made aware.
--- NOTE | 2023-01-29 14:54 | PC.NURSE ---
This patient, Jackie Garcia, was transferred to [[id number]] on 01/29/23 at 1455. Personal belongings sent with patient. Report given to [Soumya WILKINSON]. Appropriate documentation sent with patient.
--- NOTE | 2023-01-29 15:56 | PC.NURSE ---
This patient, Jackie Garcia, was received from ICU on 01/29/23 at 1440. Report received from MINH Zhong. Patient/family oriented to unit policies and routines.
[2023-01-30] MEDS: LORazepam INJ (*CRX) 2 MG/ML VIAL IV PUSH ×3 (02:48→08:15)
[2023-01-30] MEDS: MORPHINE SULFATE (*CRX) 2 MG/ML INJ IV PUSH ×4 (02:48→09:21)
[2023-01-30 08:00] VITALS: BP 132/98; PULSE 103; RESP 18; TEMP 36.4; O2SAT 90
[2023-01-30] MEDS: LORazepam INJ (*CRX) 2 MG/ML VIAL 1 MG IV PUSH (09:21)
--- NOTE | 2023-01-30 09:31 | P.DS_ITS ---
DS: Admitting Diagnosis Discharge Date 01/30/23 0900 Admitting Diagnosis NSTEMI, PNA, CHF exacerbation DS: Discharge Diagnosis Discharge Diagnosis (1) Non-ST elevation VA (NSTEMI): Code(s): I21.4 - Non-ST elevation (NSTEMI) myocardial infarction Status: Acute Assessment and Plan: * Presented with shortness of breath, and chest pain for 3 days * Trops elevated at 13.800, 6.880, 12.900, 11.100 * EKG (01/24/23) shows regular rhythm, no ST elevation * EKG (01/25/23) Bradycardia, VA anterior (recent), VA inferior (age indeterminate), no significant changes * Chest xray shows opacities, of the lung bases, and left mid lung zone consistent with PNA vs atelectasis * CTA does not indicate any PE, confirms opacities of the lung bases PNA vs Atelectasis vs pulmonary edema * Cardiology consulted * Supplemental oxygen * Continue carvedilol, aspirin, nitro * Heparin drip stopped * Continue Lovenox for DVT prophylaxis * Echo EF greater than 70% with grade 2 diastolic dysfunction * Cardiac cath EF of 75% with total occlusion of the RCA, 40-50% with the OM of the circumflex (2) Pneumonia: Code(s): J18.9 - Pneumonia, unspecified organism Status: Acute Assessment and Plan: * CTA and chest xray indicate PNA vs Atelectasis * Continue azithromycin Rocephin, switch to orals at this time, cefdinir and azithromycin * Blood cultures gram positive cocci isolated, continue current antibiotics for now * sputum cultures pending * Supplemental oxygen as indicated * Continue with nebulizer treatments * Chest xray show central congestive changes (3) Diastolic heart failure, NYHA class 1: Code(s): I50.30 - Unspecified diastolic (congestive) heart failure Status: Acute Assessment and Plan: * Echo from 02/03/2022 shows EF of 65-70% with grade 1 diastolic dysfunction * Echo from 01/25/23 EF >70% with a grade 2 diastolic dysfunction * CTA does indicated mild pulmonary edema * appears to be an acute on chronic diastolic heart failure with exacerbation * Restart losartan, and supplemental potassium * Restart lasix 40mg IV BID and spironolactone 25mg PO Daily per cardiology * Trend urine output * Daily weights * adjust therapy as indicated * Repeat xray showed central congestive changes and probably minimal bibasilar pulmonary edema (4) Dyslipidemia: Code(s): E78.5 - Hyperlipidemia, unspecified Status: Acute Assessment and Plan: * Low-fat diet * Lipid panel Chol 211, LDL 136, HDL 49, triglyceride 134 * Atorvastatin 40mg PO daily added (5) Hypertension: Qualifiers: Hypertension type: primary hypertension Qualified Code(s): I10 - Essential (primary) hypertension Code(s): I10 - Essential (primary) hypertension Status: Acute Assessment and Plan: * Current BP is 124/57 * Continue with Coreg, Lasix, and losartan * lasix restarted at this time * Continue to trend BP * adjust therapy as indicated (6) Dementia: Code(s): F03.90 - Unspecified dementia, unspecified severity, without behavioral di sturbance, psychotic disturbance, mood disturbance, and anxiety Status: Acute Assessment and Plan: * Continue aricept * Reorient often * Encourage good wake sleep cycle * trend mood and mentation
--- NOTE | 2023-01-30 09:31 | PM.DS ---
DS: Admitting Diagnosis Discharge Date 01/30/23 0900 Admitting Diagnosis NSTEMI, PNA, CHF exacerbation DS: Discharge Diagnosis Discharge Diagnosis (1) Non-ST elevation [place] (NSTEMI): Code(s): I21.4 - Non-ST elevation (NSTEMI) myocardial infarction Status: Acute Assessment and Plan: Presented with shortness of breath, and chest pain for 3 days Trops elevated at 13.800, 6.880, 12.900, 11.100 EKG (01/24/23) shows regular rhythm, no ST elevation EKG (01/25/23) Bradycardia, NC anterior (recent), NC inferior (age indeterminate), no significant changes Chest xray shows opacities, of the lung bases, and left mid lung zone consistent with PNA vs atelectasis CTA does not indicate any PE, confirms opacities of the lung bases PNA vs Atelectasis vs pulmonary edema Cardiology consulted Supplemental oxygen Continue carvedilol, aspirin, nitro Heparin drip stopped Continue Lovenox for DVT prophylaxis Echo EF greater than 70% with grade 2 diastolic dysfunction Cardiac cath EF of 75% with total occlusion of the RCA, 40-50% with the OM of the circumflex (2) Pneumonia: Code(s): J18.9 - Pneumonia, unspecified organism Status: Acute Assessment and Plan: CTA and chest xray indicate PNA vs Atelectasis Continue azithromycin Rocephin, switch to orals at this time, cefdinir and azithromycin Blood cultures gram positive cocci isolated, continue current antibiotics for now sputum cultures pending Supplemental oxygen as indicated Continue with nebulizer treatments Chest xray show central congestive changes (3) Diastolic heart failure, NYHA class 1: Code(s): I50.30 - Unspecified diastolic (congestive) heart failure Status: Acute Assessment and Plan: Echo from 02/03/2022 shows EF of 65-70% with grade 1 diastolic dysfunction Echo from 01/25/23 EF >70% with a grade 2 diastolic dysfunction CTA does indicated mild pulmonary edema appears to be an acute on chronic diastolic heart failure with exacerbation Restart losartan, and supplemental potassium Restart lasix 40mg IV BID and spironolactone 25mg PO Daily per cardiology Trend urine output Daily weights adjust therapy as indicated Repeat xray showed central congestive changes and probably minimal bibasilar pulmonary edema (4) Dyslipidemia: Code(s): E78.5 - Hyperlipidemia, unspecified Status: Acute Assessment and Plan: Low-fat diet Lipid panel Chol 211, LDL 136, HDL 49, triglyceride 134 Atorvastatin 40mg PO daily added (5) Hypertension: Qualifiers: Hypertension type: primary hypertension Qualified Code(s): I10 - Essential (primary) hypertension Code(s): I10 - Essential (primary) hypertension Status: Acute Assessment and Plan: Current BP is 124/57 Continue with Coreg, Lasix, and losartan lasix restarted at this time Continue to trend BP adjust therapy as indicated (6) Dementia: Code(s): F03.90 - Unspecified dementia, unspecified severity, without behavioral disturbance, psychotic disturbance, mood disturbance, and anxiety Status: Acute Assessment and Plan: Continue aricept Reorient often Encourage good wake sleep cycle trend mood and mentation (7) Hypokalemia: Code(s): E87.6 - Hypokalemia Status: Acute Assessment and Plan: K is 3.8 stable Keep above 4.0 replace as indicated Trend labs (8) Junctional bradycardia: Code(s): R00.1 - Bradycardia, unspecified Status: Acute Assessment and Plan: Stable V.Fib on the monitor Continue telemetry (9) Urinary retention: Code(s): R33.9 - Retention of urine, unspecified Status: Acute Assessment and Plan: Urinary catheter present Start tamsulosin for now trend urine output voiding trial soon
[2023-01-30] MEDS: MORPHINE 50 MG/NS 100ML (*CRX) 50 MG/100 ML BAG IV CONT (09:52)
== END 2023-01-30 12:24 | disposition hospice, inpatient (51) | DRG 280 ==
LOC: ANHED 14:02 → ANHIMU 14:47 → ANH3MEDSUR 01-27 22:34 → ANHICU 01-29 07:51 → ANH3MEDSUR 01-29 14:55
PROVIDERS: Internal Medicine; Internal Medicine Cardiovascular Disease; Nurse Practitioner; Specialist; Admitting Provider Student in an Organized Health Care Education/Training Program; Emergency Provider Physician Assistant; PCP Internal Medicine; Visit Provider Nurse Practitioner
PROC: 4A023N7 Measurement of Cardiac Sampling and Pressure, Left Heart, Percutaneous Approach (ICD-10-PCS; CPT 93452; principal; 2023-01-26 08:30)
PROC: B215YZZ Fluoroscopy of Left Heart using Other Contrast (ICD-10-PCS; 2023-01-26 08:30)
DX: I21.4 Non-ST elevation (NSTEMI) myocardial infarction (principal); I46.2 Cardiac arrest due to underlying cardiac condition; I50.33 Acute on chronic diastolic (congestive) heart failure; J18.9 Pneumonia, unspecified organism; I49.01 Ventricular fibrillation; N17.9 Acute kidney failure, unspecified; I11.0 Hypertensive heart disease with heart failure; E78.5 Hyperlipidemia, unspecified; F03.90 Unspecified dementia, unspecified severity, without behavioral disturbance, psychotic disturbance, mood disturbance, and anxiety; E87.6 Hypokalemia; R33.9 Retention of urine, unspecified; R74.01 Elevation of levels of liver transaminase levels; R41.0 Disorientation, unspecified; M81.0 Age-related osteoporosis without current pathological fracture; Z51.5 Encounter for palliative care; Z20.822 Contact with and (suspected) exposure to COVID-19; Z79.899 Other long term (current) drug therapy
CPT/HCPCS: 36415; 36600; 71045; 71275; 80053; 80074; 81001; 82140; 82375; 82805; 83050; 83605; 83735; 83880; 84100; 84132; 84443; 84484; 85025; 85380; 85610; 85730; 87040; 87077; 87086; 87636; 92950; 93005; 93458; 94640; 96365; 96367; 96375; 97161; 97166; 99285; A9270; C1760; C1887; C1894; C8929; G0269; G0378; J0171; J0456; J0692; J0696; J1644; J1650; J1940; J2060; J2250; J2270; J2405; J2765; J3010; J3370; J3480; J7030; J7040; J7050; Q9957; Q9967

== ENCOUNTER 2023-01-30 12:25 | HOS | payer OTHER, MEDICARE, SELFPAY ==
[2023-01-30] MEDS: MORPHINE SULFATE INJ (*CRX) 50 MG in SODIUM CHLORIDE 0.9% IV 95 ML IV CONT (09:55)
[2023-01-30 12:38] VITALS: O2SAT 90
[2023-01-30] MEDS: LORazepam INJ (*CRX) 2 MG/ML VIAL 1 MG IV PUSH (13:07)
[2023-01-30] MEDS: GLYCOPYRROLATE INJ (*SP) 0.2 MG/ML VIAL 0.1 MG IV PUSH (13:09)
[2023-01-30] MEDS: MORPHINE SULFATE (*CRX) 4 MG/ML INJ IV PUSH (13:09)
[2023-01-30] MEDS: PROCHLORPERAZINE EDISYLATE 10 MG/2 ML VIAL IV PUSH (13:10)
[2023-01-30] MEDS: MORPHINE SULFATE INJ (*CRX) 10 MG/ML AMP 6 MG SUB-Q (17:41)
--- NOTE | 2023-01-30 18:31 | PM.IMHP ---
H&P: HPI History of Present Illness Date/Time: 01/30/23 18:31 Chief Complaint: Uncontrolled dyspnea and discomfort Narrative: this unfortunate 87-year-old female was admitted [facility] on January 24 with increasing shortness of breath and stuttering chest pain over the preceding 3 days. She was treated with carvedilol and diuresed with furosemide. Creatinine peaked at 1.5 on January 26 and was 1.1 on January 29. She underwent coronary angiography on January 26 that showed a completely occluded right coronary artery with good left ventricular function and diastolic dysfunction. Grade 2. Echocardiogram had shown dilated right ventricle and posterior basal hypokinesis with good left ventricular function otherwise. There was moderate aortic stenosis. Unfortunately on the morning of January 29 she experienced a cardiac arrest with ventricular fibrillation. She was resuscitated. Because of her advanced age and comorbidities and discomfort and dyspnea family opted for comfort care. She was on morphine 1 milligram/hour and had received 2 boluses of morphine but continued pneumonia mentally grimaces intermittently and remained tachypneic with a oxygen saturation of 88% on 2 L by nasal cannula. Because of this she was admitted inpatient hospice for comfort care. Unfortunately earlier today her IV line was leaking. She was transition to subcutaneous morphine at 6 mg every 2 hours and 6 mg hourly p.r.n. until midline catheter could be placed. Review of Systems Review of Systems: ROS unobtainable: Yes unobtainable due to medical condition PMFSH Past Medical History Medical History Aortic heart murmur Dementia Diastolic heart failure, NYHA class 1 Dyslipidemia Hypertension Obesity (BMI 30-39.9) Osteoporosis Parkinson disease Psoriasiform eruption Surgical History Surgical History Hx of cataract extraction S/P ORIF (open reduction internal fixation) fracture hip Family History Family History Father Family history of malignant neoplasm Mother Family history of malignant neoplasm Patient's mother is Mother Hypertension Father Patient's father is Family history of cardiovascular disease Social History Social History Social History: She has 3 children . She lives with her and daughter Ayana. 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 Code status DNR. Smoking status: Never smoker Second hand tobacco smoke exposure: No Alcohol intake: never Substance use: never Substance use type: does not use Lack of Transportation: No Lack of Food: Never True Current Housing: I Have Housing Concerned About Future Housing: No Difficulty Paying Gas/Electric Bills: No Difficulty Paying for Meds: No Currently Unemployed: No Education: High School Diploma/GED Difficulty w/ Childcare or Family Care: No Spiritual care concerns: No Meds Home Medications and Allergies Home Medications Medication Instructions Recorded Confirmed Type carvedilol 12.5 mg tablet See Rx Instructions .Route 08/06/22 01/24/23 Rx .COMPLEX #180 tabs potassium chloride 20 mEq 20 meq PO DAILY #90 tabs 08/28/22 01/24/23 Rx tablet,extended release alendronate 70 mg tablet See Rx Instructions .Route 10/27/22 01/24/23 Rx .COMPLEX #12 tabs furosemide 20 mg tablet 20 mg PO QAM #90 tabs 11/05/22 01/24/23 Rx losartan 100 1 tablet PO DAILY #90 tabs 11/05/22 01/24/23 Rx mg-hydrochlorothiazide 25 mg tablet donepezil 5 mg tablet See Rx Instructions .Route 12/31/22 01/24/23 Rx .COMPLEX #90 tabs Allergies Allergy/AdvReac Type Severity Reaction Status Date / Time No Known Allergies Allergy Baldo
[2023-01-30 20:00] VITALS: BP 139/89; PULSE 79; RESP 18; TEMP 37.3; O2SAT 89
[2023-01-31] MEDS: GLYCOPYRROLATE INJ (*SP) 0.2 MG/ML VIAL 0.1 MG IV PUSH ×3 (07:33→22:50)
[2023-01-31] MEDS: PROCHLORPERAZINE EDISYLATE 10 MG/2 ML VIAL IV PUSH (07:33)
[2023-01-31] MEDS: LORazepam INJ (*CRX) 2 MG/ML VIAL 1 MG IV PUSH ×3 (07:33→20:35)
[2023-01-31] MEDS: MORPHINE SULFATE INJ (*CRX) 50 MG in SODIUM CHLORIDE 0.9% IV 95 ML 6 MG IV CONT ×2 (07:55→22:42)
[2023-01-31 08:00] VITALS: BP 115/79; PULSE 128; RESP 12; TEMP 37.4; O2SAT 87; O2SAT 89
--- NOTE | 2023-01-31 11:01 | PM.IMPN ---
Progress Note: A&P Assessment and Plan (1) Palliative care encounter: Code(s): Z51.5 - Encounter for palliative care Status: Acute Assessment and Plan: Needs inpatient hospice criteria due to requiring continuous parenteral morphine for symptom management remainder palliative regimen as ordered (2) Acute respiratory failure: Code(s): J96.00 - Acute respiratory failure, unspecified whether with hypoxia or hypercapnia Status: Acute (3) Acute combined systolic and diastolic congestive heart failure: Code(s): I50.41 - Acute combined systolic (congestive) and diastolic (congestive) heart failure Status: Acute (4) Cardiac arrest with ventricular fibrillation: Code(s): I46.9 - Cardiac arrest, cause unspecified; I49.01 - Ventricular fibrillation Status: Acute (5) Ventricular fibrillation: Code(s): I49.01 - Ventricular fibrillation Status: Acute (6) Delirium: Code(s): R41.0 - Disorientation, unspecified Status: Acute (7) Transaminitis: Code(s): R74.01 - Elevation of levels of liver transaminase levels Status: Acute (8) KARLA (acute kidney injury): Code(s): N17.9 - Acute kidney failure, unspecified Status: Acute (9) Dementia: Code(s): F03.90 - Unspecified dementia, unspecified severity, without behavioral disturbance, psychotic disturbance, mood disturbance, and anxiety Status: Acute Subjective Date/time seen: 01/31/23 11:01 Interval history: Quiet night. Midline cath insertion went well. Family at bedside. Review of Systems Review of Systems: ROS unobtainable: Yes unobtainable due to medical condition Exam Narrative: HEENT: mucosa moist NECK: No JVD CHEST: Coarse BS, tachyneic HEART: NL S1/S2, regular, 3/6 TAMARA RUSB ABDOMEN: BS hypoactive, soft EXTREMITIES: No edema NEUROLOGIC: CN intact and symmetric to inspection MUSCULOSKELETAL: No gross abnormalities noted PSYCH: Unresponsive to verbal and tactile stimuli Objective Data Vital Signs Vital Signs: Vital Signs - 24 hr 01/30/23 12:38 01/30/23 20:00 01/31/23 08:00 Temperature 99.1 F 99.3 F Pulse Rate 79 128 H Respiratory Rate 18 12 Blood Pressure 139/89 115/79 Pulse Oximetry 90 89 L 87 L Oxygen Delivery Nasal Cannula Oxygen Flow Rate 2 01/31/23 08:00 Temperature Pulse Rate Respiratory Rate Blood Pressure Pulse Oximetry 89 L Oxygen Delivery Nasal Cannula Oxygen Flow Rate 2 Intake/Output Intake/Output: Intake & Output 01/28/23 01/29/23 01/30/23 01/31/23 23:59 23:59 23:59 23:59 Intake Total 100 Output Total 550 Balance -450 Meds/Results Medications: Active Medications Generic Name Dose Route Start Last Admin Trade Name Freq PRN Reason Stop Dose Admin Artificial Tears 0 drop 01/30/23 12:30 Artificial Tears Ophth Soln 15 Ml Bottle EACH EYE Q12H PRN Dry Eye(s) Bisacodyl 10 mg 01/30/23 12:30 Bisacodyl 10 Mg Suppository RECTAL DAILY PRN Constipation Glycopyrrolate 0.1 mg 01/30/23 12:30 01/31/23 07:33 Glycopyrrolate Inj (*Sp) 0.2 Mg/Ml Vial IV PUSH 0.1 mg Q4H PRN Administration secretions Morphine Sulfate 50 mg/ Sodium 100 mls @ 6 mls/hr 01/30/23 12:30 01/31/23 07:55 Chloride IV CONT 3 mg/hr .[id number] 6 mls/hr Administration 3 MG/HR Lorazepam 1 mg 01/30/23 12:30 01/31/23 07:33 Lorazepam Inj (*Crx) 2 Mg/Ml Vial IV PUSH 1 mg Q4H PRN Administration PAIN/RESTLESSNESS Prochlorperazine Edisylate 10 mg 01/30/23 12:30 01/31/23 07:33 Prochlorperazine Edisylate 10 Mg/2 Ml Vial IV PUSH 10 mg Q6H PRN Administration Nausea And Vomiting
[2023-01-31 20:00] VITALS: BP 115/83; PULSE 110; RESP 14; TEMP 37.2; O2SAT 87; O2SAT 90
[2023-02-01] MEDS: GLYCOPYRROLATE INJ (*SP) 0.2 MG/ML VIAL 0.1 MG IV PUSH ×4 (05:22→21:16)
[2023-02-01] MEDS: LORazepam INJ (*CRX) 2 MG/ML VIAL 1 MG IV PUSH ×4 (05:33→21:16)
[2023-02-01] MEDS: MORPHINE SULFATE INJ (*CRX) 10 MG/ML AMP 6 MG IV PUSH ×2 (07:38→11:46)
[2023-02-01 08:00] VITALS: BP 131/78; PULSE 126; RESP 10; TEMP 36.8; O2SAT 86
--- NOTE | 2023-02-01 10:34 | PM.IMPN ---
Progress Note: A&P Assessment and Plan (1) Palliative care encounter: Code(s): Z51.5 - Encounter for palliative care Status: Acute Assessment and Plan: Needs inpatient hospice criteria due to requiring continuous parenteral morphine for symptom management remainder palliative regimen as ordered (2) Acute respiratory failure: Code(s): J96.00 - Acute respiratory failure, unspecified whether with hypoxia or hypercapnia Status: Acute (3) Acute combined systolic and diastolic congestive heart failure: Code(s): I50.41 - Acute combined systolic (congestive) and diastolic (congestive) heart failure Status: Acute (4) Cardiac arrest with ventricular fibrillation: Code(s): I46.9 - Cardiac arrest, cause unspecified; I49.01 - Ventricular fibrillation Status: Acute (5) Ventricular fibrillation: Code(s): I49.01 - Ventricular fibrillation Status: Acute (6) Delirium: Code(s): R41.0 - Disorientation, unspecified Status: Acute (7) Transaminitis: Code(s): R74.01 - Elevation of levels of liver transaminase levels Status: Acute (8) KARLA (acute kidney injury): Code(s): N17.9 - Acute kidney failure, unspecified Status: Acute (9) Dementia: Code(s): F03.90 - Unspecified dementia, unspecified severity, without behavioral disturbance, psychotic disturbance, mood disturbance, and anxiety Status: Acute Subjective Date/time seen: 02/01/23 10:34 Interval history: Continues comfortable. Midline functioning. Family at bedside. Review of Systems Review of Systems: ROS unobtainable: Yes unobtainable due to medical condition Exam Narrative: HEENT: mucosa moist NECK: No JVD CHEST: Coarse BS, tachyneic HEART: NL S1/S2, regular, 3/6 TAMARA RUSB ABDOMEN: BS hypoactive, soft EXTREMITIES: No edema NEUROLOGIC: CN intact and symmetric to inspection MUSCULOSKELETAL: No gross abnormalities noted PSYCH: Unresponsive to verbal and tactile stimuli Objective Data Vital Signs Vital Signs: Vital Signs - 24 hr 01/31/23 20:00 01/31/23 20:00 02/01/23 08:00 Temperature 98.9 F 98.2 F Pulse Rate 110 H 126 H Respiratory Rate 14 10 L Blood Pressure 115/83 131/78 Pulse Oximetry 90 87 L 86 L Oxygen Delivery Nasal Cannula Oxygen Flow Rate 2 Intake/Output Intake/Output: Intake & Output 01/29/23 01/30/23 01/31/23 02/01/23 23:59 23:59 23:59 23:59 Intake Total 200 Output Total 550 Balance -350 Meds/Results Medications: Active Medications Generic Name Dose Route Start Last Admin Trade Name Freq PRN Reason Stop Dose Admin Artificial Tears 0 drop 01/30/23 12:30 Artificial Tears Ophth Soln 15 Ml Bottle EACH EYE Q12H PRN Dry Eye(s) Bisacodyl 10 mg 01/30/23 12:30 Bisacodyl 10 Mg Suppository RECTAL DAILY PRN Constipation Glycopyrrolate 0.1 mg 01/30/23 12:30 02/01/23 09:32 Glycopyrrolate Inj (*Sp) 0.2 Mg/Ml Vial IV PUSH 0.1 mg Q4H PRN Administration secretions Morphine Sulfate 50 mg/ Sodium 100 mls @ 6 mls/hr 01/30/23 12:30 01/31/23 22:42 Chloride IV CONT 3 mg/hr .[id number] 6 mls/hr Administration 3 MG/HR Lorazepam 1 mg 01/30/23 12:30 02/01/23 09:32 Lorazepam Inj (*Crx) 2 Mg/Ml Vial IV PUSH 1 mg Q4H PRN Administration PAIN/RESTLESSNESS Morphine Sulfate 6 mg 01/31/23 15:02 02/01/23 07:38 Morphine Sulfate Inj (*Crx) 10 Mg/Ml Amp IV PUSH 6 mg Q2H PRN Administration PAIN RATED 7-10 Prochlorperazine Edisylate 10 mg 01/30/23 12:30 01/31/23 07:33 Prochlorperazine Edisylate 10 Mg/2 Ml Vial IV PUSH 10 mg Q6H PRN Administration Nausea And Vomiting Sodium Chloride 10 ml 02/01/23 14:00 Saline Lock Flush IV PUSH Q8HR HIEU Sodium Chloride 10 ml 02/01/23 07:34 Saline Lock Flush IV PUSH PRN PRN Flush Sodium Chloride 20 ml 02/01/23 07:34 Saline Lock Flush IV PUSH
[2023-02-01] MEDS: MORPHINE SULFATE INJ (*CRX) 50 MG in SODIUM CHLORIDE 0.9% IV 95 ML 6 MG IV CONT (15:40)
[2023-02-01 20:00] VITALS: BP 100/63; PULSE 116; RESP 20; TEMP 37.1; O2SAT 85; O2SAT 86
[2023-02-01] MEDS: SALINE LOCK FLUSH 10 ML IV PUSH (21:16)
[2023-02-02] MEDS: GLYCOPYRROLATE INJ (*SP) 0.2 MG/ML VIAL 0.1 MG IV PUSH (05:31)
[2023-02-02] MEDS: LORazepam INJ (*CRX) 2 MG/ML VIAL 1 MG IV PUSH (05:31)
[2023-02-02] MEDS: SALINE LOCK FLUSH 10 ML IV PUSH (05:32)
[2023-02-02] MEDS: MORPHINE SULFATE INJ (*CRX) 50 MG in SODIUM CHLORIDE 0.9% IV 95 ML 6 MG IV CONT (07:39)
[2023-02-02 08:00] VITALS: BP 140/89; PULSE 131; RESP 16; TEMP 36.9; O2SAT 89
--- NOTE | 2023-02-02 12:31 | PM.IMPN ---
Progress Note: A&P Assessment and Plan (1) Palliative care encounter: Code(s): Z51.5 - Encounter for palliative care Status: Acute Assessment and Plan: Needs inpatient hospice criteria due to requiring continuous parenteral morphine for symptom management remainder palliative regimen as ordered (2) Acute respiratory failure: Code(s): J96.00 - Acute respiratory failure, unspecified whether with hypoxia or hypercapnia Status: Acute (3) Acute combined systolic and diastolic congestive heart failure: Code(s): I50.41 - Acute combined systolic (congestive) and diastolic (congestive) heart failure Status: Acute (4) Cardiac arrest with ventricular fibrillation: Code(s): I46.9 - Cardiac arrest, cause unspecified; I49.01 - Ventricular fibrillation Status: Acute (5) Ventricular fibrillation: Code(s): I49.01 - Ventricular fibrillation Status: Acute (6) Delirium: Code(s): R41.0 - Disorientation, unspecified Status: Acute (7) Transaminitis: Code(s): R74.01 - Elevation of levels of liver transaminase levels Status: Acute (8) KARLA (acute kidney injury): Code(s): N17.9 - Acute kidney failure, unspecified Status: Acute (9) Dementia: Code(s): F03.90 - Unspecified dementia, unspecified severity, without behavioral disturbance, psychotic disturbance, mood disturbance, and anxiety Status: Acute Subjective Date/time seen: 02/02/23 12:31 Interval history: Continues comfortable. Midline functioning. Family at bedside. Review of Systems Review of Systems: ROS unobtainable: Yes unobtainable due to medical condition Exam Narrative: HEENT: mucosa moist NECK: No JVD CHEST: Coarse BS, tachyneic HEART: NL S1/S2, regular, 3/6 TAMARA RUSB ABDOMEN: BS hypoactive, soft EXTREMITIES: No edema NEUROLOGIC: CN intact and symmetric to inspection MUSCULOSKELETAL: No gross abnormalities noted PSYCH: Unresponsive to verbal and tactile stimuli Objective Data Vital Signs Vital Signs: Vital Signs - 24 hr 02/01/23 20:00 02/01/23 20:00 02/02/23 08:00 Temperature 98.8 F 98.5 F Pulse Rate 116 H 131 H Respiratory Rate 20 16 Blood Pressure 100/63 140/89 Pulse Oximetry 85 L 86 L 89 L Oxygen Delivery Nasal Cannula Oxygen Flow Rate 2 02/02/23 08:00 Temperature Pulse Rate Respiratory Rate Blood Pressure Pulse Oximetry Oxygen Delivery Nasal Cannula Oxygen Flow Rate 2 Intake/Output Intake/Output: Intake & Output 01/30/23 01/31/23 02/01/23 02/02/23 23:59 23:59 23:59 23:59 Intake Total 200 100 100 Output Total 550 750 Balance -350 -650 100 Meds/Results Medications: Active Medications Generic Name Dose Route Start Last Admin Trade Name Freq PRN Reason Stop Dose Admin Artificial Tears 0 drop 01/30/23 12:30 Artificial Tears Ophth Soln 15 Ml Bottle EACH EYE Q12H PRN Dry Eye(s) Bisacodyl 10 mg 01/30/23 12:30 Bisacodyl 10 Mg Suppository RECTAL DAILY PRN Constipation Glycopyrrolate 0.1 mg 01/30/23 12:30 02/02/23 05:31 Glycopyrrolate Inj (*Sp) 0.2 Mg/Ml Vial IV PUSH 0.1 mg Q4H PRN Administration secretions Morphine Sulfate 50 mg/ Sodium 100 mls @ 6 mls/hr 01/30/23 12:30 02/02/23 07:39 Chloride IV CONT 3 mg/hr .[id number] [id number] 6 mls/hr Administration 3 MG/HR Lorazepam 1 mg 01/30/23 12:30 02/02/23 05:31 Lorazepam Inj (*Crx) 2 Mg/Ml Vial IV PUSH 1 mg Q4H PRN Administration PAIN/RESTLESSNESS Morphine Sulfate 6 mg 01/31/23 15:02 02/01/23 11:46 Morphine Sulfate Inj (*Crx) 10 Mg/Ml Amp IV PUSH 6 mg Q2H PRN Administration PAIN RATED 7-10 Prochlorperazine Edisylate 10 mg 01/30/23 12:30 01/31/23 07:33 Prochlorperazine Edisylate 10 Mg/2 Ml Vial IV PUSH 10 mg Q6H PRN Administration Nausea And Vomiting Sodium Chloride 10 ml 02/01/23 14:00 02/02/23 05:32 Saline Lock Flush IV PUSH 1
--- NOTE | 2023-02-03 12:17 | P.DN_ITS ---
Discharge Summary Date and Time Date of : 02/02/23 Time of : 16:45 Provider Pronounced By: Esther Hurt RN Probable Cause of Probable Cause of : acute hypoxic respiratory failure due to acute on chronic combined systolic and diastolic chf due to nstemi followed by ventricular fibrillation Summary Hospital Course: Admitted to inpatient hospice due to uncontrolled pain and dyspnea. Medications were titrated to comfort. Mrs. Garcia peacefully. Additional Data Confirmation of as documented by pronouncing clinician: Pupillary Reflex, Palpable Pulses, Response to Stimuli, Heart Tones and Breath Sounds Name of Provider Notified: Dr. Francisco Aleman Time Provider Notified: 16:55 Provider Requests Autopsy: No Client Services Account Manager Notified: Yes Date [facility] Notified of : 02/02/23 Time [facility] Notified of : 17:11
== END 2023-02-02 16:45 | disposition expired | DRG 951 ==
PROVIDERS: Admitting Provider Internal Medicine; PCP Internal Medicine; Visit Provider Internal Medicine
DX: Z51.5 Encounter for palliative care (principal); I50.43 Acute on chronic combined systolic (congestive) and diastolic (congestive) heart failure; J96.01 Acute respiratory failure with hypoxia; I21.4 Non-ST elevation (NSTEMI) myocardial infarction; N17.9 Acute kidney failure, unspecified; I46.2 Cardiac arrest due to underlying cardiac condition; I49.01 Ventricular fibrillation; E66.9 Obesity, unspecified; M81.0 Age-related osteoporosis without current pathological fracture; G20 Parkinson's disease; F03.90 Unspecified dementia, unspecified severity, without behavioral disturbance, psychotic disturbance, mood disturbance, and anxiety; I35.0 Nonrheumatic aortic (valve) stenosis; Z66 Do not resuscitate; Z98.49 Cataract extraction status, unspecified eye
CPT/HCPCS: 36569; A9270; C1751; J0780; J2060; J2270